=== PATIENT | male | born 1970 | race Caucasian/White ===

== ENCOUNTER → 2025-01-10 | Outpatient (CLI) | payer OTHER, BC, SELFPAY ==
--- NOTE | 2025-01-10 16:26 | RAD_ITS ---
PROCEDURE: CHEST PA AND LATERAL 01/10/2025 REASON FOR EXAM: ACUTE BRONCHITIS TECHNIQUE: Procedure Code: RADCXR Modality: DX Procedure: CHEST PA AND LATERAL COMPARISON: None. FINDINGS: Lungs/Pleura: No focal consolidation, pneumothorax, or pleural effusion. Heart/Mediastinum: Within normal limits. Bones/Soft tissues: Minimal degenerative changes of the spine. RAD/Chest PA and Lateral IMPRESSION: No airspace consolidation or pleural effusion. Reading Location: [id number]
--- OUTSIDE RECORDS SUMMARY | 2025-01-10 16:44 | XMS RPT_ITS | CCD ---
Author Organization [facility] Inform ion Partnership [facility] Care Team Providers Care Real Estate Administrative Assistant Name Role Phone (Historical), No Pcp Primary Care Provider Unava ilDr. Chaparro Shin Attending Unava ilable Pending, Provider Primary Care Unavailable (Historical), No Pcp Primary Care Provider Unava ilable Lavelle Calix PA-C Primary Care Provider Unavailable Primary Care Provider UnavailRuchi Collins PA-C Unavailable NATHANAEL CALIXDITH PAWEL Referring Unavaila Blaise Jules MD Unavailable NONE, NONE Unavailable Unavailable MIZANIN, LAVELLE L Referring Unavailable MIZANIN, LAVELLE L Primary Care Unavailable MIZANIN, LAVELLE L Referring Unavailable MIZANIN, LAVELLE L Primary Care Unavailable MIZANIN, LAVELLE L Primary Care Unavailable [place] Referring Unavailable MIZANIN, LAVELLE L Primary Care Unavailable MIZANIN, LAVELLE L Attending Unavailable MIZANIN, LAVELLE L Primary Care Unavailable Allergies Allergy Classification Reported Allergen(s) Allergy Type Date of Onset Reaction(s) Facility (1 source) ALLERGIES NOT ON FILE; Translations: [ALLERGIES NOT ON FILE] Propensity to adverse reactions (disorder) [facility] 2 Repository Medications Current Medications Medication Drug Class(es) Dates Sig (Normalized) Sig (Original) atorvastatin 20 mg oral tablet (3 sources) HMG-CoA Reductase Inhibitor Start: 01-11-2024 take 1 tablet by mouth once daily atorvastatin (LIPITOR) 20 mg tablet Indications: Hyperlipidemia, unspecified hyperlipidemia type Take 1 tablet by mouth once daily. 90 tablet 3 01/11/2024 Active CPAP/BIPAP/OTHER (7 sources) Start: 08-30-2022 End: 01-14-2050 CPAP/BIPAP/OTHER Indications: LOVE (obstructive sleep apnea) Type .CPAPSettings into a note to see current settings/supplies/DM E information. 1 Each 08/30/2022 01/14/2050 Active Start: 08-30-2022 End: 01-14-2050 CPAP/BIPAP/OTHER Indications : LOVE (obstructive sleep apnea) Type .CPAPSettings into a note to see current settings/supplies/DME information. 1 Each 0 08/30/2022 01/14/2050 Active Comment on above: Type .CPAPSettings i nto a note to see current settings/supplies/DME information. ibuprofen 200 mg oral tablet (1 source) Nonsteroidal Anti-inflammatory Drug ibuprofen 200 mg tab let 2 as needed for pain active Mattie Granados LPN [facility] Completed/Discontinued Medications Medication Drug Class(es) Dates Sig (Normalized) Sig (Original) [id number] 200 actuat albuterol 0.09 mg/actuat metered dose inhaler (2 sources) beta2-Adrenergic Agonist Start: 09-23-2014 End: 07-25-2022 take 2 puff(s) by inhalation every four hours as needed for wheezing albuterol HFA (VENTOLIN HFA) 90 mcg/actuation inhaler Indications: Other pneumonia, unspecified organism Inhale 2 Puffs as instructed every 4 hours as needed for Wheezing/Shortness of Breath. 1 Inhaler 0 09/23/2014 07/25/2022 Discontinued Comment on above: Inhale 2 Puffs as in structed every 4 hours as needed for Wheezing/Shortness of Breath. codeine phosphate 2 mg/ml / guaiFENesin 20 mg/ml oral solution (2 sources) Opioid Agonist Start: 09-23-2014 End: 07-25-2022 take 5-10 mL by mouth four times daily as needed for cough codeine-guaiFENesin (ROBITUSSIN AC) 10-100 mg/5 mL syrup Indications: Other pneumonia, unspecified organism Take 5-10 mL by mouth four times daily as needed for Cough. May cause drowsiness. 120 mL 0 09/23/2014 07/25/2022 Discontinued Comment on above: Take 5-10 mL by mout h four times daily as needed for Cough. May cause drowsiness. Problems Active Problems Problem Classification Problem Date Documented Date Episodic/Chronic Diabetes mellitus without complication (1 source) Increased glucose level; Translations: [Other abnormal glucose] Episodic Disorders of lipid metabolism (4 sources) Hyperlipidemia; Translations: [Hyperlipidemia, unspecified] Onset: 01-09-2024 01-11-2024 Chronic Immunizations and screening for infectious disease (2 sources) Viral screening status; Translations: [Encounter for screening for other viral diseases] Episodic Influenza (1 source) Influenza-like illness; Translations: [Influenza due to unidentified influenza virus with other respiratory manifestations] 02-05-2024 Episodic Malaise and fatigue (2 sources) Fatigue; Translations: [Other fatigue] Episodic Osteoarthritis (14 sources) Primary osteoarthritis, right shoulder; Translations: [Osteoarthritis of acromioclavicular joint] Onset: 02-06-2022 Chronic Other lower respiratory disease (1 source) Snoring; Translations: [Snoring] Episodic Other lower respiratory disease (2 sources) Cough; Translations: [Acute cough] 02-05-2024 Episodic Other non-traumatic joint disorders (1 source) Pain in right knee; Translations: [Pain in joint, lower leg] Episodic Residual codes; unclassified (7 sources) Obstructive sleep apnea syndrome; Translations: [Obstructive sleep apnea (adult) (pediatric)] Onset: 08-06-2022 08-29-2022 Chronic Unclassified (1 source) Acute cough; Translations: [Acute cough] Onset: 02-05-2024 Past or Other Problems Problem Classification Problem Date Documented Da te Episodic/Chronic Other connective tissue disease (4 sources) Impingement syndrome of right shoulder; Translations: [Impingement syndrome of right shoulder] Onset: 02-10-2022 Episodic Other connective tissue disease (10 sources) Impingement syndrome of right shoulder region; Translations: [Impingement syndrome of right shoulder] Onset: 02-10-2022 07-25-2022 Episodic Other connective tissue disease (1 source) Subacromial bursitis of left shoulder; Translations: [Bursitis of left shoulder] Onset: 11-02-2023 11-02-2023 Episodic Other connective tissue disease (1 source) Disorder of rotator cuff; Translations: [Unspecified disorder of synovium and tendon, left shoulder] Onset: 10-05-2023 10-05-2023 Episodic Other screening for suspected conditions (not mental disorders or infectious disease) (10 sources) Patient encounter status; Translations: [Encounter for screening for malignant neoplasm of rectum] Onset: 01-09-2024 Episodic Sprains and strains (1 source) Rupture of tendon of biceps, long head; Translations: [Strain of muscle, fascia and tendon of long head of biceps, left arm, initial encounter] Onset: 11-02-2023 11-02-2023 Episodic Unclassified (1 source) Patient encounter status 02-03-2024 Results Test Name Value Interpretation Reference Range Facility [facility] 11-28-2024 [facility] [place] [place] MARYURI CHOI ([id number]) 1970 M Date Time Provider Department 11/28/24 2:40 PM LAVELLE CALIX [facility] During your visit today, we recorded the following information about you: Temperature Pulse Blood pressure Weight 97.4 degrees 60/minute 125/80 95.8 kg Height 1.829 m Lavelle Calix PA-C 11/28/2024 3:29 PM Signed Subjective Maryuri Daigle Choi is a 54 year old male. HPI Patient here for an annual well exam. LOVE: He has known LOVE based on HST - refuses CPAP as he had difficulty getting adjusted to it. Not interested in Inspire HLD: He has known HLD. Compliant with atorvastatin daily. Known family history of CAD - mother needed a stent for CAD in 60s, MGM had heart issue but unsure what. His tells him he has some hearing loss. He admits that with his former career ([employer]) it was common to have L sided hearing loss based on the location of a speaker for the work radio (L side of car). He feels he's doing okay with his hearing. His mood is doing well without any features of anxiety or depression. His appetite is good without any unintentional weight loss. He denies any fever or chills. He denies any CP, SOB, PND, Orthopnea or syncope. No abdominal pain, N/V/C/D. No active urinary concerns. Review of Systems All other systems reviewed and are negative. Objective BP 125/80 Pulse 60 Temp 36.3 ?C (97.4 ?F) (Temporal) Ht 182.9 cm (6') Wt 95.8 kg (211 lb 3.2 oz) SpO2 99% BMI 28.64 kg/m? Physical Exam Constitutional: General: He is not in acute distress. HENT: Head: Normocephalic and atraumatic. Right Ear: External ear normal. Left Ear: External ear normal. Eyes: Extraocular Movements: Extraocular movements intact. Conjunctiva/sclera: Conjunctivae normal. Cardiovascular: Rate and Rhythm: Normal rate and regular rhythm. Heart sounds: No murmur heard. Pulmonary: Effort: Pulmonary effort is normal. Breath sounds: Normal breath sounds. Abdominal: General: Bowel sounds are normal. Palpations: Abdomen is soft. Tenderness: There is no abdominal tenderness. Musculoskeletal: Cervical back: Neck supple. No rigidity. Lymphadenopathy: Head: Right side of head: No submental, submandibular, tonsillar, preauricular, posterior auricular or occipital adenopathy. Left side of head: No submental, submandibular, tonsillar, preauricular, posterior auricular or occipital adenopathy. Cervical: No cervical adenopathy. Skin: General: Skin is warm and dry. Findings: No rash. Neurological: Mental Status: He is alert. Mental status is at baseline. Psychiatric: Mood and Affect: Mood normal. Speech: Speech normal. Behavior: Behavior normal. Thought Content: Thought content normal. Judgment: Judgment normal. Assessment AND Plan Routine general medical examination at a health care facility Labs - reviewed CBC CMP Lipids - MUCH improved with atorvastatin! TSH PSA UA Preventative Cologuard 08/02/2022 neg Discussed will be due 08/02/2025 for colon cancer sceening - Cologuard vs colonoscopy vs iFOBT Vaccinations Declines Shingrix, Flu, COVID, Pneumococcal LOVE - unable to tolerate CPAP - hesitant to consider Inspire - Avoid driving when sleepy Lavelle Calix PA-C Allergies As of Date: 11/28/2024 (No Known Allergies) Date Reviewed: 11/28/2024 Reviewed by: Gabbie Walker MA - Fully Assessed Reason for Visit: Yearly Exam [187] Results [95] Cmt: Labs Primary Visit Diagnosis:Routine general medical examination at a health care facility [Z00.00] Order(s):FOLLOW UP IN PRIMARY CARE (FAMILY AND INTERNAL MEDICINE) [[id number]] Order #: [id number]: 1 FUTURE Prescriptions as of 11/28/2024 - atorvastatin (LIPITOR) 20 mg tablet Take 1 tablet by mouth once daily. Problem List As Of Date 11/28/2024 Noted Resolved Degenerative joint disease of acromioclavicular*02/2022 Impingement syndrome of right shoulder [M75.41] 02/10/2022 LOVE (obstructive sleep apnea) [G47.33] 08/2022 Hyperlipidemia [E78.5] 01/11/2024 Medications Discontinued During This Encounter Prescriptions - CPAP/BIPAP/OTHER (Discontinued) Reported on 11/28/2023 Level of Service: WELLNESS EXAMS EST 40-64 YRS [05684] Encounter Status:Closed by LAVELLE CALIX on 11/28/24 Normal [facility] CBC W Auto Differential pane l (Bld)on 11-11-2024 Basophils (Bld) [#/Vol] 0.05 10*3/uL Normal <0.11 [facility] Comment on above: Order Comment: Specjason davis Type: BLOOD SPECIMEN Ordering Facility: [facility] Address: [address] [place] [address] Performed By: #### 5 7021-8 #### [facility] CLIA [id number] [address] [place] [address] [place] Basophils/100 WBC (Bld) 0.9 % Normal [facility] Comment on above: Order Comment: Elgini susan Type: BLOOD SPECIMEN Ordering Facility: [facility] Address: [address] [place] [address] Performed By: #### 5 7021-8 #### [facility] CLIA [id number] [address] [place] [address] [place] Differential cell count method Nom (Bld) Auto Normal [facility] Comment on above: Order Comment: Speci men Type: BLOOD SPECIMEN Ordering Facility: [facility] Address: [address] [place] [address] Performed By: #### 5 7021-8 #### [facility] CLIA [id number] [address] [place] [address] [place] Eosinophils (Bld) [#/Vol] 0.20 10*3/uL Normal <0.46 [facility] Comment on above: Order Comment: Speci men Type: BLOOD SPECIMEN Ordering Facility: [facility] Address: [address] [place] [address] Performed By: #### 5 7021-8 #### [facility] CLIA [id number] [address] [place] [address] [facility] [place] Eosinophils/100 WBC (Bld) 3.7 % Normal [facility] Comment on above: Order Comment: Speci men Type: BLOOD SPECIMEN Ordering Facility: [facility] Address: [address] [place] [address] Performed By: #### 5 7021-8 #### [facility] CLIA [id number] [address] [place] [address] [place] Erythrocyte distribution width (RBC) [Ratio] 12.0 % Normal 11.5-15.0 [facility] Comment on above: Order Comment: Speci men Type: BLOOD SPECIMEN Ordering Facility: [facility] Address: [address] [place] [address] Performed By: #### 5 7021-8 #### [facility] CLIA [id number] [address] [place] [address] [place] Hematocrit (Bld) [Volume fraction] 42.4 % Normal 39.0-51.0 [facility] Comment on above: Order Comment: Speci men Type: BLOOD SPECIMEN Ordering Facility: [facility] Address: [address] [place] [address] Performed By: #### 5 7021-8 #### [facility] CLIA [id number] [address] [place] [address] [place] Hemoglobin (Bld) [Mass/Vol] 14.7 g/dL Normal 13.0-17.0 [facility] Comment on above: Order Comment: Speci men Type: BLOOD SPECIMEN Ordering Facility: [facility] Address: [address] [place] [address] Performed By: #### 5 7021-8 #### [facility] CLIA [id number] [address] [place] [address] [place] Immature granulocytes (Bld) [#/Vol] 10*3/uL Normal <0.10 [facility] Comment on above: Order Comment: Speci men Type: BLOOD SPECIMEN Ordering Facility: [facility] Address: [address] [place] [address] Performed By: #### 5 7021-8 #### [facility] CLIA [id number] [address] [place] [address] [place] Immature granulocytes/100 WBC (Bld) 0.2 % Normal [facility] Comment on above: Order Comment: Speci men Type: BLOOD SPECIMEN Ordering Facility: [facility] Address: [address] [place] [address] Performed By: #### 5 7021-8 #### [facility] CLIA [id number] [address] [place] [address] [place] Lymphocytes (Bld) [#/Vol] 2.03 10*3/uL Normal 1.00-4.00 [facility] Comment on above: Order Comment: Speci men Type: BLOOD SPECIMEN Ordering Facility: [facility] Address: [address] [place] [address] Performed By: #### 5 7021-8 #### [facility] CLIA [id number] [address] [place] [address] [place] Lymphocytes/100 WBC (Bld) 38.0 % Normal [facility] Comment on above: Order Comment: Speci men Type: BLOOD SPECIMEN Ordering Facility: [facility] Address: [address] [place] [address] Performed By: #### 5 7021-8 #### [facility] CLIA [id number] [address] [place], [place] [address] [place] [address] STATES [facility] MCH (RBC) [Entitic mass] 31.0 pg Normal 26.0-34.0 [facility] Comment on above: Order Comment: Speci men Type: BLOOD SPECIMEN Ordering Facility: [facility] Address: [address] [place] [address] Performed By: #### 5 7021-8 #### [facility] CLIA [id number] [address] [place] [address] [place] MCHC (RBC) [Mass/Vol] 34.7 g/dL Normal 30.5-36.0 [facility] Comment on above: Order Comment: Speci men Type: BLOOD SPECIMEN Ordering Facility: [facility] Address: [address] [place] [address] Performed By: #### 5 7021-8 #### [facility] CLIA [id number] [address] [place] [address] [place] MCV (RBC) [Entitic vol] 89.5 fL Normal 80.0-100.0 [facility] Comment on above: Order Comment: Speci men Type: BLOOD SPECIMEN Ordering Facility: [facility] Address: [address] [place] [address] Performed By: #### 5 7021-8 #### [facility] CLIA [id number] [address] [place] Monocytes (Bld) [#/Vol] 0.51 10*3/uL Normal <0.87 [facility] Comment on above: Order Comment: Speci men Type: BLOOD SPECIMEN Ordering Facility: [facility] Address: [address] [place] [address] Performed By: #### 5 7021-8 #### [facility] CLIA [id number] [address] Monocytes/100 WBC (Bld) 9.6 % Normal [facility] Comment on above: Order Comment: Speci men Type: BLOOD SPECIMEN Ordering Facility: [facility] Address: [address] [id number] Performed By: #### 5 7021-8 #### [facility] CLIA [id number] [address] [place] [address] [place] Neutrophils (Bld) [#/Vol] 2.54 10*3/uL Normal 1.45-7.50 [facility] Comment on above: Order Comment: Speci men Type: BLOOD SPECIMEN Ordering Facility: [facility] Address: [address] [place] [address] Performed By: #### 5 7021-8 #### [facility] CLIA [id number] [address] [place] [address] [place] Neutrophils/100 WBC (Bld) 47.6 % Normal [facility] Comment on above: Order Comment: Speci men Type: BLOOD SPECIMEN Ordering Facility: [facility] Address: [address] [place], [place] [id number] Performed By: #### 5 7021-8 #### [facility] CLIA [id number] [address] [place] [address] [place] Nucleated RBC (Bld) [#/Vol] Normal [facility] Comment on above: Order Comment: Speci men Type: BLOOD SPECIMEN Ordering Facility: [facility] Address: [address] [place] [address] Performed By: #### 5 7021-8 #### [facility] CLIA [id number] [address] [place] [address] [place] Nucleated RBC/100 WBC (Bld) [Ratio] Normal [facility] Comment on above: Order Comment: Speci men Type: BLOOD SPECIMEN Ordering Facility: [facility] Address: [address] [id number] Performed By: #### 5 7021-8 #### [facility] CLIA [id number] [address] [place] [address] [place] Platelet mean volume (Bld) [Entitic vol] 10.7 fL Normal 9.0-12.7 [facility] Comment on above: Order Comment: Speci men Type: BLOOD SPECIMEN Ordering Facility: [facility] Address: [address] [place] [address] Performed By: #### 5 7021-8 #### [facility] CLIA [id number] [address] [place] [address] [place] Platelets (Bld) [#/Vol] 238 10*3/uL Normal 150-400 [facility] Comment on above: Order Comment: Speci men Type: BLOOD SPECIMEN Ordering Facility: [facility] Address: [address] [place] [address] Performed By: #### 5 7021-8 #### [facility] CLIA [id number] [address] [place] [address] [place] RBC (Bld) [#/Vol] 4.74 10*6/uL Normal 4.20-6.00 [facility] Comment on above: Order Comment: Speci men Type: BLOOD SPECIMEN Ordering Facility: [facility] Address: [address] [place] [address] Performed By: #### 5 7021-8 #### [facility] CLIA [id number] [address] [place] [address] [place] WBC (Bld) [#/Vol] 5.34 10*3/uL Normal 3.70-11.00 [facility] Comment on above: Order Comment: Speci men Type: BLOOD SPECIMEN Ordering Facility: [facility] Address: [address] [place] [address] Performed By: #### 5 7021-8 #### [facility] CLIA [id number] [address] [place] [address] [facility] [place] Comprehensive metabolic 2000 panelon 11-11-2024 Albumin [Mass/Vol] 4.6 g/dL Normal 3.9-4.9 [facility] Comment on above: Order Comment: Speci men Type: BLOOD SPECIMEN Ordering Facility: [facility] Address: [address] [id number] Performed By: #### 2 4323-8, 18769-5, TSHRF #### [facility] CLIA [id number] [address] [place] [address] [place] ALP [Catalytic activity/Vol] 58 U/L Normal 38-113 [facility] Comment on above: Order Comment: Speci men Type: BLOOD SPECIMEN Ordering Facility: [facility] Address: [address] [place] [address] Performed By: #### 2 4323-8, 67551-0, TSHRF #### [facility] CLIA [id number] [address] [place] [address] [place] ALT With P-5'-P [Catalytic activity/Vol] 34 U/L Normal 10-54 [facility] Comment on above: Order Comment: Speci men Type: BLOOD SPECIMEN Ordering Facility: [facility] Address: [address] [place] [address] Performed By: #### 2 4323-8, 55538-1, TSHRF #### [facility] CLIA [id number] [address] [place] [address] [place] Anion gap [Moles/Vol] 14 mmol/L Normal 8-15 [facility] Comment on above: Order Comment: Speci men Type: BLOOD SPECIMEN Ordering Facility: [facility] Address: [address] [place] [address] Performed By: #### 2 4323-8, 62746-2, TSHRF #### [facility] CLIA [id number] [address] [place] [address] [place] AST With P-5'-P [Catalytic activity/Vol] 25 U/L Normal 14-40 [facility] Comment on above: Order Comment: Speci men Type: BLOOD SPECIMEN Ordering Facility: [facility] Address: [address] [place] [address] Performed By: #### 2 4323-8, 91494-2, TSHRF #### [facility] CLIA [id number] [address] [place] [address] [place] Bilirubin [Mass/Vol] 0.7 mg/dL Normal 0.2-1.3 [facility] Comment on above: Order Comment: Speci men Type: BLOOD SPECIMEN Ordering Facility: [facility] Address: [address] [place] [address] Performed By: #### 2 4323-8, 77292-8, TSHRF #### [facility] CLIA [id number] [address] [place] [address] [place] Calcium [Mass/Vol] 9.1 mg/dL Normal 8.5-10.2 [facility] Comment on above: Order Comment: Speci men Type: BLOOD SPECIMEN Ordering Facility: [facility] Address: [address] [place] [address] Performed By: #### 2 4323-8, 49519-5, TSHRF #### [facility] CLIA [id number] [address] [place] [address] [place] Chloride [Moles/Vol] 102 mmol/L Normal 98-107 [facility] Comment on above: Order Comment: Speci men Type: BLOOD SPECIMEN Ordering Facility: [facility] Address: [address] [place] [address] Performed By: #### 2 4323-8, 43835-1, TSHRF #### [facility] CLIA [id number] [address] [place] [address] [place] CO2 [Moles/Vol] 23 mmol/L Normal 22-30 [facility] Comment on above: Order Comment: Speci men Type: BLOOD SPECIMEN Ordering Facility: [facility] Address: [address] [place] [address] Performed By: #### 2 4323-8, 33155-5, TSHRF #### [facility] CLIA [id number] [address] [place] [address] [place] Creatinine [Mass/Vol] 0.86 mg/dL Normal 0.73-1.22 [facility] Comment on above: Order Comment: Pineda davis Type: BLOOD SPECIMEN Ordering Facility: [facility] Address: [address] [place] [address] Performed By: #### 2 4323-8, 07351-1, TSHRF #### [facility] CLIA [id number] [address] [place] [address] [place] eGFRcr SerPlBld CKD-EPI 2020 103 mL/min/1.73m??? Normal >=60 [facility] Comment on above: Order Comment: Pineda davis Type: BLOOD SPECIMEN Ordering Facility: [facility] Address: [address] [place] [address] Result Comment: Angela mated Glomerular Filtration Rate (eGFR) is calculated using the 2020 CKD-EPI creatinine equation. This equation utilizes serum creatinine, sex, and age as parameters. The creatinine assay has traceable calibration to isotope dilution-mass spectrometry. Refer to KDIGO guidelines for clinical interpretation. In patients with unstable renal function, e.g. those with acute kidney injury, the eGFR may not accurately reflect actual GFR. Performed By: #### 2 4323-8, 45833-3, [facility] #### [facility] CLIA [id number] [address] [place] [address] [place] Glucose [Mass/Vol] 86 mg/dL Normal 74-99 [facility] Comment on above: Order Comment: Pineda davis Type: BLOOD SPECIMEN Ordering Facility: [facility] Address: [address] [place] [address] Result Comment: The [place] Diabetes Association (ADA) provides guidance for cutoff values for fasting glucose and random glucose. The ADA defines fasting as no caloric intake for at least 8 hours. Fasting plasma glucose results between 100 to 125 mg/dL indicate increased risk for diabetes (prediabetes). Fasting plasma glucose results greater than or equal to 126 mg/dL meet the criteria for diagnosis of diabetes. In the absence of unequivocal hyperglycemia, results should be confirmed by repeat testing. In a patient with classic symptoms of hyperglycemia or hyperglycemic crisis, random plasma glucose results greater than or equal to 200 mg/dL meet the criteria for diagnosis of diabetes. Reference: Standards of Medical Care in Diabetes 2016, [place] Diabetes Association. Diabetes Care. 2016.39(Suppl 1). Performed By: #### 2 4323-8, 54488-8, [facility] #### [facility] CLIA [id number] [address] [place] [address] [place] Potassium [Moles/Vol] 4.2 mmol/L Normal 3.7-5.1 [facility] Comment on above: Order Comment: Speci men Type: BLOOD SPECIMEN Ordering Facility: [facility] Address: [address] [place] [address] Performed By: #### 2 4323-8, 83084-7, [facility] #### [facility] CLIA [id number] [address] [place] [address] [place] Protein [Mass/Vol] 7.3 g/dL Normal 6.3-8.0 [facility] Comment on above: Order Comment: Speci men Type: BLOOD SPECIMEN Ordering Facility: [facility] Address: [address] [place] [address] Performed By: #### 2 4323-8, 58705-1, [facility] #### [facility] CLIA [id number] [address] [place] [address] [place] Sodium [Moles/Vol] 139 mmol/L Normal 136-144 [facility] Comment on above: Order Comment: Speci men Type: BLOOD SPECIMEN Ordering Facility: [facility] Address: [address] [place] [address] Performed By: #### 2 4323-8, 40502-8, T[facility] #### [facility] CLIA [id number] [address] [place] [address] [place] Urea nitrogen [Mass/Vol] 12 mg/dL Normal 9-24 [facility] Comment on above: Order Comment: Speci men Type: BLOOD SPECIMEN Ordering Facility: [facility] Address: [address] [place] [address] Performed By: #### 2 4323-8, 47355-4, [facility] #### [facility] CLIA [id number] [address] [place] [address] [facility] Lipid 1996 panelon 5 Cholesterol [Mass/Vol] 193 mg/dL Normal <200 [facility] Comment on above: Order Comment: Pineda susan Type: BLOOD SPECIMEN Ordering Facility: [facility] Address: [address] [place] [address] Result Comment: <200 mg/dL, Desirable 200-239 mg/dL, Borderline high >239 mg/dL, High Performed By: #### 2 4323-8, 85574-2, [facility] #### [facility] CLIA [id number] [address] [place] [id number] [facility] Cholesterol in HDL [Mass/Vol] 48 mg/dL Normal >39 [facility] Comment on above: Order Comment: Pineda davis Type: BLOOD SPECIMEN Ordering Facility: [facility] Address: [address] [place] [address] Result Comment: 40-5 9 mg/dL, Acceptable >59 mg/dL, High: Negative risk factor for coronary heart disease <40 mg/dL, Low: Positive risk factor for coronary heart disease Performed By: #### 2 4323-8, 40029-3, [facility] #### [facility] CLIA [id number] [address] Cholesterol in LDL [Mass/Vol] 127 mg/dL High <100 [facility] Comment on above: Order Comment: Elginjason davis Type: BLOOD SPECIMEN Ordering Facility: [facility] Address: [address] [place] [address] Result Comment: <100 mg/dL, Optimal 100-129 mg/dL, Near optimal/above optimal 130-159 mg/dL, Borderline high 160-189 mg/dL, High >189 mg/dL, Very high Secondary prevention optimal LDL Cholesterol levels are recommended to be <70 mg/dL LDL cholesterol is calculated using the Henley-NIH equation. Performed By: #### 2 4323-8, 08701-7, [facility] #### [facility] CLIA [id number] [address] [place] [address] [facility] Cholesterol in LDL/Cholesterol in HDL [Mass ratio] 2.65 {ratio} High <2.54 [facility] Comment on above: Order Comment: Pineda susan Type: BLOOD SPECIMEN Ordering Facility: [facility] Address: [address] [place] [address] Result Comment: Refe ritchiece: 1. National Cholesterol Education Program ATP III Guideline At-A-Glance Quick Desk Reference: National Heart, Lung, and Blood [place]. National Institutes of Health. 2001: NIH Publication No. 01-3305. 2. An International Atherosclerosis Society position paper: global recommendations for the management of dyslipidemia: executive summary, Atherosclerosis. 2014: 232(2):410-413. Performed By: #### 2 4323-8, 39655-0, T[facility] #### [facility] CLIA [id number] [address] [place] [address] [facility] Cholesterol in VLDL [Mass/Vol] 17 mg/dL Normal <30 [facility] Comment on above: Order Comment: Pineda davis Type: BLOOD SPECIMEN Ordering Facility: [facility] Address: [address] [place] [address] Performed By: #### 2 4323-8, 80026-0, T[facility] #### [facility] CLIA [id number] [address] [place] [address] [facility] Cholesterol non HDL [Mass/Vol] 145 mg/dL High <130 [facility] Comment on above: Order Comment: Elginjason davis Type: BLOOD SPECIMEN Ordering Facility: [facility] Address: [address] [place] [address] Result Comment: <130 mg/dL, Optimal 130-159 mg/dL, Near optimal/above optimal 160-189 mg/dL, Borderline high 190-219 mg/dL, High >219 mg/dL, Very high Secondary prevention optimal non HDL Cholesterol levels are recommended to be <100 mg/dL Performed By: #### 2 4323-8, 37156-4, [facility] #### [facility] CLIA [id number] [address] [place] [address] [facility] [place] Cholesterol.total/ Cholesterol in HDL [Mass ratio] 4.02 {ratio} Normal <5.10 [facility] Comment on above: Order Comment: Speci men Type: BLOOD SPECIMEN Ordering Facility: [facility] Address: [address] [place] [address] Performed By: #### 2 4323-8, 37850-1, T[facility] #### [facility] CLIA [id number] [address] [place] [address] [place] [facility] FASTING TIME 12 hrs Normal [facility] Comment on above: Order Comment: Speci men Type: BLOOD SPECIMEN Ordering Facility: [facility] Address: [address] [place] [address] Performed By: #### 2 4323-8, 85047-4, TSHRF #### [facility] CLIA [id number] [address] [place] [address] [place] [facility] Triglyceride [Mass/Vol] 100 mg/dL Normal <150 [facility] Comment on above: Order Comment: Speci men Type: BLOOD SPECIMEN Ordering Facility: [facility] Address: [address] [place] [address] Result Comment: <150 mg/dL, Normal 150-199 mg/dL, Borderline high 200-499 mg/dL, High >499 mg/dL, Very high Performed By: #### 2 4323-8, 05977-2, T[facility] #### [facility] CLIA [id number] [address] [place] [address] [facility] [place] PSA/PROSTATE SPECIFIC ANTIGE N SCREENINGon 11-11-2024 Prostate specific Ag [Mass/Vol] 0.23 ng/mL Normal <2.60 [facility] Comment on above: Order Comment: Speci men Type: BLOOD SPECIMEN Ordering Facility: [facility] Address: [address] [place] [address] Result Comment: Tota l PSA test methodology used is the Electrochemiluminescence Immunoassay by [employer]. Total PSA values by differing methodologies cannot be interchanged. Performed By: #### P SAS1 #### [facility] CLIA [id number] [address] [place] TSH W/REFLEX FT4on 5 TSH Qn 2.490 m[IU]/L Normal 0.270-4.200 [facility] Comment on above: Order Comment: Speci men Type: BLOOD SPECIMEN Ordering Facility: [facility] Address: [address] [place] [address] Performed By: #### 2 4323-8, 41538-3, T[facility] #### [facility] CLIA [id number] [address] [place] [address] [facility] [place] URINALYSIS, REFLEX MICROSCOP ICon 11-11-2024 Bilirubin Ql (U) Negative Normal Negative [facility] Comment on above: Order Comment: Speci men Type: URINE SPECIMEN Ordering Facility: [facility] Address: [address] [place] [address] Performed By: #### L [id number] #### [facility] CLIA [id number] [address] [place] [address] [facility] [place] Clarity (Unsp spec) Clear Normal Clear [facility] Comment on above: Order Comment: Speci men Type: URINE SPECIMEN Ordering Facility: [facility] Address: [address] [place] [address] Performed By: #### L [id number] #### [facility] CLIA [id number] [address] [place] [address] [facility] Color (U) Yellow Normal Yellow [facility] Comment on above: Order Comment: Speci men Type: URINE SPECIMEN Ordering Facility: [facility] Address: [address] [place] [address] Performed By: #### L [id number] #### [facility] CLIA [id number] [address] [place] [address] [facility] Glucose Test strip (U) [Mass/Vol] Negative Normal Negative [facility] Comment on above: Order Comment: Speci men Type: URINE SPECIMEN Ordering Facility: [facility] Address: [address] [place] [address] Performed By: #### L [id number] #### [facility] CLIA [id number] [address] [place] [address] [place] Hemoglobin Ql (U) Negative Normal Negative [facility] Comment on above: Order Comment: Speci men Type: URINE SPECIMEN Ordering Facility: [facility] Address: [address] [place] [address] Performed By: #### L [id number] #### [facility] CLIA [id number] [address] [place] [address] [place] Ketones Ql (U) Negative Normal Negative [facility] Comment on above: Order Comment: Speci men Type: URINE SPECIMEN Ordering Facility: [facility] Address: [address] [place] [address] Performed By: #### L [id number] #### [facility] CLIA [id number] [address] [place] [address] [place] Leukocyte esterase Test strip Ql (U) Negative Normal Negative [facility] Comment on above: Order Comment: Speci men Type: URINE SPECIMEN Ordering Facility: [facility] Address: [address] [place] [address] Performed By: #### L [id number] #### [facility] CLIA [id number] [address] [place] [address] [place] Nitrite Ql (U) Negative Normal Negative [facility] Comment on above: Order Comment: Speci men Type: URINE SPECIMEN Ordering Facility: [facility] Address: [address] [place] [address] Performed By: #### L [id number] #### [facility] CLIA [id number] [address] [place] [address] [place] pH (U) 7.0 [pH] Normal 5.0-8.0 [facility] Comment on above: Order Comment: Speci men Type: URINE SPECIMEN Ordering Facility: [facility] Address: [address] [place], [place] [address] Performed By: #### L [id number] #### [facility] CLIA [id number] [address] Protein (U) [Mass/Vol] Negative Normal Negative [facility] Comment on above: Order Comment: Speci men Type: URINE SPECIMEN Ordering Facility: [facility] Address: [address] [place] [address] Performed By: #### L [id number] #### [facility] CLIA [id number] [address] [place] [id number] [facility] [place] Specific gravity (U) [Rel density] 1.015 Normal 1.005-1.030 [facility] Comment on above: Order Comment: Speci men Type: URINE SPECIMEN Ordering Facility: [facility] Address: [address] [place] [address] Performed By: #### L [id number] #### [facility] CLIA [id number] [address] [place] [id number] [facility] Urobilinogen Ql (U) 0.2 EU/dL Normal 0.2-1.0 EU/dL [facility] Comment on above: Order Comment: Speci men Type: URINE SPECIMEN Ordering Facility: [facility] Address: [address] [place] [address] Performed By: #### L [id number] #### [facility] CLIA [id number] [address] [place] [id number] [facility] Relevant diagnostic tests/la boratory data Narrativeon 08-29-2024 Fall risk assessment no [employer] Work Phone: MEDS REVIEW Documentation of cur rent medications (procedure) [employer] Work Phone: MEDS REVIEWD Medications reviewed without changes [employer] Work Phone: Dorene 02-06-2024 ZONIA Telephone ([facility]) MARYURI CHOI ([id number]) 1970 M Date Time Provider Department 02/06/24 LAVELLE CALIX During your visit today, we recorded the following information about you: Allergies As of Date: 02/06/2024 (No Known Allergies) Date Reviewed: 02/05/2024 Reviewed by: Chapis Ren LPN - Fully Assessed Reason for Visit: Results [95] Prescriptions as of 02/09/2024 - atorvastatin (LIPITOR) 20 mg tablet Take 1 tablet by mouth once daily. - CPAP/BIPAP/OTHER Type .CPAPSettings into a note to see current settings/supplies/DME information. Problem List As Of Date 02/06/2024 Noted Resolved Degenerative joint disease of acromioclavicular*02/2022 Impingement syndrome of right shoulder [M75.41] 02/10/2022 LOVE (obstructive sleep apnea) [G47.33] 08/2022 Hyperlipidemia [E78.5] 01/11/2024 Encounter Status:Closed by LAVELLE CALIX on 02/09/24 [facility] CNOVon 02-05-2024 CNOV Office Visit (UCWSTR ) MARYURI CHOI ([id number]) 1970 M Date Time Provider Department 02/05/24 9:00 AM [facility] During your visit today, we recorded the following information about you: Temperature Pulse Respiration Blood pressure 101.3 degrees 97/minute 16/minute 142/82 Weight 93.8 kg Mo Summers MD 02/05/2024 4:35 PM Signed Patient presents with: Cough: Cough, chest congestion, fever and bodyaches x 6 days HPI: Feeling sick for 7 days. He and his were sick with URI symptoms. He felt back to normal yesterday but woke very ill this morning. This reminds him of when he had pneumonia (2015). No COVID testing during this illness. Positive symptoms: Cough, Fever, Body Aches, Shortness of breath, Sore throat, Nasal Congestion, Rhinorrhea, Chills, Body Aches, Malaise, Fatigue, Headache, Nausea, thrsty Negative symptoms: Chest pain, Earache, Vomiting, Diarrhea, OTC: Tylenol MEDICATIONS: Current Outpatient Medications Medication Sig atorvastatin (LIPITOR) 20 mg tablet Take 1 tablet by mouth once daily. CPAP/BIPAP/OTHER Type .CPAPSettings into a note to see current settings/supplies/DME information. (Patient not taking: Reported on 11/28/2023) No current facility-administered medications for this visit. ALLERGIES: ALLERGIES No Known Allergies VITALS: BP 142/82 Pulse 97 Temp (!) 38.5 ?C (101.3 ?F) (Tympanic) Resp 16 Wt 93.8 kg (206 lb 12.7 oz) SpO2 96% BMI 28.05 kg/m? PHYSICAL EXAM: GEN: ill appearing, alert HEENT: PERRL, EOMI, conjunctiva clear Ears: canals clear. TMs without erythema, bulge, or effusion Sinuses: non-tender frontal sinus, non-tender maxillary sinuses Throat: moist mucous membranes, mild erythema, no exudate Neck: supple, no thyromegaly, no lymphadenopathy HEART: regular rate, regular rhythm, no murmurs LUNGS: clear to auscultation, no wheezes or crackles, no increased WOB ASSESSMENT/PLAN: 1. Influenza-like illness - ICD9: 487.1, ICD10: J11.1 (primary diagnosis) 2. Acute cough - ICD9: 786.2, ICD10: R05.1 - suspect new viral URI today, differential includes COVID-19 and influenza. - Discussed supportive care treatment with home isolation (fever free for 24 hours and improving symptoms), rest, cold medicine, and analgesia. - Red flags to seek further treatment include chest pain, shortness of breath, and lethargy; in the ER if severe. - INFLUENZA AANDB MOLECULAR (POC) - negative - COVID AND INFLUENZA A/B AND RSV PCR, ROUTINE - declines antiviral if COVID positive - XR CHEST 2V FRONTAL/LAT to look for occult pneumonia. To be completed at [facility] and will call with results since xray is not available here this morning because of maintenance. Mo Summers MD Allergies As of Date: 02/05/2024 (No Known Allergies) Date Reviewed: 02/05/2024 Reviewed by: Chapis Ren LPN - Fully Assessed Reason for Visit: Cough [28] Cmt: Cough, chest congestion, fever and bodyaches x 6 days Primary Visit Diagnosis:Influenza-like illness [J11.1] Other Visit Diagnosis:Acute cough [R05.1] Order(s):INFLUENZA AANDB MOLECULAR (POC) [[id number]] Order #: [id number]. #:[id number] -LAB XR CHEST 2V FRONTAL/LAT [[id number]] Order #: [id number] FUTURE COVID AND INFLUENZA A/B AND RSV PCR, ROUTINE [SQCVFLRS] Order #: [id number]. #:[id number] Prescriptions as of 02/05/2024 - atorvastatin (LIPITOR) 20 mg tablet Take 1 tablet by mouth once daily. - CPAP/BIPAP/OTHER Type .CPAPSettings into a note to see current settings/supplies/DME information. Problem List As Of Date 02/05/2024 Noted Resolved Degenerative joint disease of acromioclavicular*02/2022 Impingement syndrome of right shoulder [M75.41] 02/10/2022 LOVE (obstructive sleep apnea) [G47.33] 08/2022 Hyperlipidemia [E78.5] 01/11/2024 Level of Service: OFFICE/OUTPATIENT ESTABLISHED MOD [facility] 30 MIN [43241] Letter Text Encounter Status:Closed by MO SUMMERS on 02/05/24 Normal [facility] COVID AND INFLUENZA A/B AND RSV PCR, ROUTINEon 02-05-2024 SARS-CoV-2 (COVID-19) RNA LAURE+probe Ql (Unsp spec) SARS-COV-2 (AGENT OF COVID-19) RNA: Not detected INFLUENZA A RNA: Not detected INFLUENZA B RNA: Not detected RESPIRATORY SYNCYTIAL VIRUS (RSV) RNA: Not detected Normal [facility] Comment on above: Performed By: #### C VFLRS #### [facility] CLIA [id number] [address] [place] [address] [place] COVID & INFLUENZA A/B & RSV PCR, ROUTINEon 02-05-2024 FLUAV RNA LAURE+probe Ql (Unsp spec) Not detected Not Detected [facility] FLUBV RNA LAURE+probe Ql (Unsp spec) Not detected Not Detected [facility] Interpretation and review of laboratory results Normal [facility] RSV A RNA LAURE+probe Ql (Unsp spec) Not detected Not Detected [facility] SARS-CoV-2 (COVID-19) RNA LAURE+probe Ql (Unsp spec) Not detected See comment [facility] Reference Range (the expected result in uninfected individuals): Not detected [facility] INFLUENZA A&B MOLECULAR (POC )on 02-05-2024 Flu A (POCT) Negative Negative [facility] Flu B (POCT) Negative Negative [facility] Procedural Control Valid [facility] Location:[address], [address] [place] [address] POINT OF CARE [facility] CT CARDIAC SCORING WO IV CON TRASTon 02-03-2024 CT CARDIAC SCORING WO IV CONTRAST Interpreted By: Yonatan Crockett, STUDY: CT CARDIAC SCORING WO IV CONTRAST; 02/03/2024 8:29 am INDICATION: Signs/Symptoms:Calcium Score. ,Z13.6 Encounter for screening for cardiovascular disorders COMPARISON: None. ACCESSION NUMBER(S): [id number] ORDERING CLINICIAN: LAVELLE CALIX TECHNIQUE: Using prospective ECG gating, CT scan of the coronary arteries was performed without intravenous contrast. Coronary calcium scoring was performed according to the method of Agatston. FINDINGS: The score and distribution of calcium in the coronary arteries is as follows: LM 0 LAD 0 LCx 0 RCA 0 Total 0 The visualized mid/lower ascending thoracic aorta measures 3.2 cm in diameter. The heart is normal in size. No pericardial effusion is present. No gross evidence of mediastinal or hilar lymphadenopathy or masses is identified. The visualized segments of the lungs are normally expanded. The visualized subdiaphragmatic structures appear intact. IMPRESSION: 1. Coronary artery calcium score of 0*. *Coronary artery calcium scoring may be helpful in predicting the risk for future coronary heart disease events. According to the [place] [employer] Foundation Clinical Expert Consensus Task Force, such testing provides important prognostic information in patients with more than one coronary heart disease risk factor. The coronary artery calcium score correlates with the annual risk of a non-fatal myocardial infarction or coronary heart disease . Coronary artery score Annual Risk 0-99 0.4% 100-399 1.3% >400 2.4% These three breakpoints correspond to lower, intermediate and high risk states for future coronary events. Such information should be used, along with appropriate clinical judgment, to make decisions regarding the intensity of risk factor management strategies to treat blood lipids and to modify other non-lipid coronary risk factors. Reference: [place] P et al. Circulation. 2007; 115:402-426 MACRO: None Signed by: Yonatan Crockett 02/06/2024 12:09 PM Dictation workstation: [id number] [facility] Lipoprotein a [Mass/Vol] 11 mg/dL Normal <30 [facility] Comment on above: Order Comment: Pineda davis Type: BLOOD SPECIMEN Ordering Facility: [facility] Address: [address] [place] [address] Performed By: #### 1 0835-7 #### [facility] CLIA [id number] [address] [place] [address] [place] Lipid 1996 panelon 4 Cholesterol [Mass/Vol] 262 mg/dL High <200 [facility] Comment on above: Order Comment: Pineda davis Type: BLOOD SPECIMEN Ordering Facility: [facility] Address: [address] [place] [address] Result Comment: <200 mg/dL, Desirable 200-239 mg/dL, Borderline high >239 mg/dL, High Performed By: #### 2 4331-1 #### [facility] CLIA [id number] [address] [place] [address] [place] [facility] CLIA [id number] [address] [place] [address] [place] Cholesterol in HDL [Mass/Vol] 44 mg/dL Normal >39 [facility] Comment on above: Order Comment: Pineda davis Type: BLOOD SPECIMEN Ordering Facility: [facility] Address: [address] [place] [address] Result Comment: 40-5 9 mg/dL, Acceptable >59 mg/dL, High: Negative risk factor for coronary heart disease <40 mg/dL, Low: Positive risk factor for coronary heart disease Performed By: #### 2 4331-1 #### [facility] CLIA [id number] [address] [place] [address] [facility] CLIA [id number] [address] [place] [address] [place] Cholesterol in LDL [Mass/Vol] 200 mg/dL High <100 [facility] Comment on above: Order Comment: Pineda davis Type: BLOOD SPECIMEN [facility] [facility] Address: [address] [place] [address] Result Comment: <100 mg/dL, Optimal 100-129 mg/dL, Near optimal/above optimal 130-159 mg/dL, Borderline high 160-189 mg/dL, High >189 mg/dL, Very high Secondary prevention optimal LDL Cholesterol levels are recommended to be < 70 mg/dL Performed By: #### 2 4331-1 #### [facility] CLIA [id number] [address] [place] [address] [place] [facility] CLIA [id number] [address] [place] [address] [place] Cholesterol in LDL/Cholesterol in HDL [Mass ratio] 4.55 {ratio} High <2.54 [facility] Comment on above: Order Comment: Pineda davis Type: BLOOD SPECIMEN Ordering Facility: [facility] Address: [address] [place] [address] Result Comment: Ac chamorro: 1. National Cholesterol Education Program ATP III Guideline At-A-Glance Quick Desk Reference: National Heart, Lung, and Blood [place]. National Institutes of Health. 2001: NIH Publication No. 01-3305. 2. An International Atherosclerosis Society position paper: global recommendations for the management of dyslipidemia: executive summary, Atherosclerosis. 2014: 232(2):410-413. Performed By: #### 2 4331-1 #### [facility] CLIA [id number] [address] [place] [address] [facility] CLIA [id number] [address] [place] [address] [place] Cholesterol in VLDL [Mass/Vol] 18 mg/dL Normal <30 [facility] Comment on above: Order Comment: Speci men Type: BLOOD SPECIMEN Ordering Facility: [facility] Address: [address] [place] [address] Performed By: #### 2 4331-1 #### [facility] CLIA [id number] [address] [place] [address] [facility] CLIA [id number] [address] [place] [address] [place] Cholesterol non HDL [Mass/Vol] 218 mg/dL High <130 [facility] Comment on above: Order Comment: Pineda davis Type: BLOOD SPECIMEN Ordering Facility: [facility] Address: [address] [place] [address] Result Comment: <130 mg/dL, Optimal 130-159 mg/dL, Near optimal/above optimal 160-189 mg/dL, Borderline high 190-219 mg/dL, High >219 mg/dL, Very high Secondary prevention optimal non HDL Cholesterol levels are recommended to be <100 mg/dL Performed By: #### 2 4331-1 #### [facility] CLIA [id number] [address] [place] [address] [place] [facility] CLIA [id number] [address] [place] [address] [place] Cholesterol.total/ Cholesterol in HDL [Mass ratio] 5.95 {ratio} High <5.10 [facility] Comment on above: Order Comment: Speci men Type: BLOOD SPECIMEN Ordering Facility: [facility] Address: [address] [place], [place] [address] Performed By: #### 2 4331-1 #### [facility] CLIA [id number] [address] [place] [address] [place] [facility] CLIA [id number] [address] [place] [address] [place] FASTING TIME 13 hrs Normal [facility] Comment on above: Order Comment: Speci men Type: BLOOD SPECIMEN Ordering Facility: [facility] Address: [address] [place] [address] Performed By: #### 2 4331-1 #### [facility] CLIA [id number] [address] [place] [address] [facility] CLIA [id number] [address] [place] [address] [place] Triglyceride [Mass/Vol] 89 mg/dL Normal <150 [facility] Comment on above: Order Comment: Speci men Type: BLOOD SPECIMEN Ordering Facility: [facility] Address: [address] [place] [address] Result Comment: <150 mg/dL, Normal 150-199 mg/dL, Borderline high 200-499 mg/dL, High >499 mg/dL, Very high Performed By: #### 2 4331-1 #### [facility] CLIA [id number] [address] [place] [address] [place] [facility] [id number] [address] [place] [address] [place] BN MRI SHOULDER W/O CONTRAST on 02-10-2022 BN MRI SHOULDER W/O CONTRAST Patient Name: MARYURI CHOI STUDY: MRI of the Right shoulder with out IV contrast INDICATION: Impingement syndrome of right shoulder COMPARISON: None. ACCESSION NUMBER(S): [id number] ORDERING CLINICIAN: CHAPARRO KNAPIC TECHNIQUE: Multiplanar multisequence MRI of the Right shoulder was performed without intravenous contrast. FINDINGS: Acromioclavicular Joint: Type 1 acromion. Moderate degenerative changes of AC joint noted. No significant subacromial osteophyte formation seen. There is some obliteration of the fat superficial to the supraspinatus myotendinous junction with downward mass effect on the supraspinatus muscle belly by the acromioclavicular joint degenerative change no evidence for abnormal increased fluid in the subacromial bursa. Biceps Tendon: The intra and extra articular portion of the biceps tendon are within normal limits. Rotator Cuff: There is mild partial-thickness articular surface tearing at the insertion of the mid to posterior supraspinatus tendon and anterior infraspinatus tendon. Teres minor and subscapularis tendons are within normal limits. Muscles: Normal signal intensity and volume. No evidence of muscular edema or atrophy. Labrum: Evaluation of labrum is limited due to lack of intraarticular contrast. There is mild tearing of the glenoid labrum circumferentially. Articular Cartilage: The articular cartilage of the glenoid and humeral head are intact. Bones: The marrow signal of the humeral head is within normal limits. No evidence acute fracture or contusion. No evidence of subcoracoid impingement. Nerves: No evidence of mass effect in the region of the quadrilateral space or suprascapular nerve. Other: There is a fusiform fluid collection along the myotendinous junction of the anterior infraspinatus muscle likely representing an intramuscular ganglion cyst. IMPRESSION: 1. Mild supraspinatus and infraspinatus tendinosis with mild undersurface tearing as above. 2. Moderate AC joint degenerative changes with findings which in the appropriate clinical setting can be seen with external impingement of the shoulder I personally reviewed the images/study and I agree with the findings as stated. This study was interpreted at [facility], [place], [place]. Electronically signed by: RAMU HAMMOND MD [facility] CORONAVIRUS(COVID-19)SARS-Co V-2 IgGon 09-07-2019 COVID-19 SARS-COV-2 IGG Negative Normal Negative [facility] Comment on above: Result Comment: . Negative results do not rule out SARS-CoV-2 (COVID-19) infection, particularly in those who have been in contact with the virus. Follow-up testing with a molecular diagnostic test should be considered to rule out acute infection in these individuals with current or recent symptoms (<14days). Results from antibody testing should not be used as the sole basis to diagnose or exclude SARS-CoV-2 infection or to inform infection status. . This test is for in vitro diagnostic use under the FDA Emergency Use Authorization (EUA) for US laboratories certified under CLIA to perform moderate or high complexity tests. This test has not been FDA cleared or approved. This test should not be used for screening of donated blood. Performed By: #### C OVGG #### [facility] [address] [place], [place] [id number] CORONAVIRUS(COVID-19)SARS-Co V-2 IgGon 09-06-2019 Lab Specimen Source Normal [facility] Comment on above: Performed By: #### C OVGG #### [facility] [address] [place], [place] [id number] Vital Signs Date Time Vital Sign Value Performing Clinician Facility 08-29-2024 14:32-0400 Body height 183 cm Blaise Hoang MD Work Phone: [facility] 08-29-2024 14:32-0400 Body height 182.88 cm Blaise oHang MD Work Phone: [facility] 08-29-2024 14:32-0400 Body mass index (BMI) [Ratio] 27.9 kg/m2 Blaise Hoang MD Work Phone: [facility] 08-29-2024 14:32-0400 Body weight 93 kg Blaise Hoang MD Work Phone: [facility] 08-29-2024 14:32-0400 Body weight 92.99 kg Blaise Hoang MD Work Phone: [facility] 08-29-2024 14:32-0400 BP SITE #1 Blaise Hoang MD Work Phone: [facility] 08-29-2024 14:32-0400 Diastolic blood pressure 77 mm[Hg] Blaise Hoang MD Work Phone: [facility] 08-29-2024 14:32-0400 Heart rate 82 /min Blaise Hoang MD Work Phone: [facility] 08-29-2024 14:32-0400 HGHTCHNVIS Blaise Hoang MD Work Phone: [facility] 08-29-2024 14:32-0400 Systolic blood pressure 138 mm[Hg] Blaise Hoang MD Work Phone: [facility] 08-29-2024 14:32-0400 VITALSDONE Blaise Hoang MD Work Phone: [facility] 02-05-2024 09:01-0500 Body mass index (BMI) [Ratio] 28.05 kg/m2 Mo Summers MD Work Phone: [facility] 02-05-2024 09:01-0500 Body temperature 101.3 [degF] Mo Summers MD Work Phone: [facility] 02-05-2024 09:01-0500 Body weight 93.8 kg Mo Summers MD Work Phone: [facility] 02-05-2024 09:01-0500 Diastolic blood pressure 82 mm[Hg] Mo Summers MD Work Phone: [facility] 02-05-2024 09:01-0500 Heart rate 97 /min Mo Summers MD Work Phone: [facility] 02-05-2024 09:01-0500 Respiratory rate 16 /min Mo Summers MD Work Phone: [facility] 02-05-2024 09:01-0500 SaO2% (BldA) [Mass fraction] 96 % Mo Summers MD Work Phone: [facility] 02-05-2024 09:01-0500 Systolic blood pressure 142 mm[Hg] Mo Summers MD Work Phone: [facility] 07-25-2022 14:04-0400 Body height 182.9 cm Lavelle Mizanin PA-C Work Phone: [facility] 07-25-2022 14:04-0400 Body weight 93.89 kg Lavelle Mizanin PA-C Work Phone: [facility] 07-25-2022 14:04-0400 Diastolic blood pressure 81 mm[Hg] Lavelle Mizanin PA-C Work Phone: [facility] 07-25-2022 14:04-0400 Heart rate 64 /min Lavelle Mizanin PA-C Work Phone: [facility] 07-25-2022 14:04-0400 SaO2% (BldA) [Mass fraction] 100 % Lavelle Mizanin PA-C Work Phone: [facility] 07-25-2022 14:04-0400 Systolic blood pressure 128 mm[Hg] Lavelle Mizanin PA-C Work Phone: [facility] Encounters Encounter Date Encounter Type Care Provider Facility Start: 11-28-2024 End: 11-28-2024 ambulatory LAVELLE L MIZANIN Facility:[facility] Start: 11-28-2024 Encounter for genera l adult medical examination without abnormal findings LAVELLE L MIZANIN [facility] Start: 11-11-2024 End: 11-11-2024 ambulatory LAVELLE L MIZANIN Facility:[facility] Start: 11-11-2024 Encounter for genera l adult medical examination without abnormal findings LAVELLE MIZANIN [facility] Start: 08-29-2024 Visit out of hours Blaise parra MD Work Phone: [employer] Work Phone: Start: 08-29-2024 In-person encounter Blaise alston MD Work Phone: [facility] Work Phone: Start: 02-06-2024 End: 02-09-2024 Telephone encounter Lavelle Perez [place] PA-C Work Phone: [facility] Comment on above: Results Start: 02-05-2024 End: 02-05-2024 Subsequent hospital visit by physician Bev [facility] Work Phone: Radiology Start: 02-05-2024 End: 02-05-2024 ambulatory MO SUMMERS Facility:[facility] Start: 02-05-2024 End: 02-05-2024 Office outpatient visit 25 minutes Mo Summers MD Work Phone: [facility] Comment on above: Influenza-like illne ss (Primary Dx); Acute cough Start: 02-03-2024 End: 02-03-2024 ambulatory [facility] Start: 02-03-2024 End: 02-03-2024 Subsequent hospital visit by physician Zeferino Clancy [facility] Comment on above: Encounter for screen ing for cardiovascular disorders Start: 01-10-2024 End: 01-10-2024 ambulatory Lavelle Chris Cheyenne PA-C Work Phone: [facility] Comment on above: Cholesterol Start: 01-10-2024 End: 01-10-2024 E-mail encounter from caregiver Lavelle Perez Jaidaanin PA-C Work Phone: [facility] Start: 01-09-2024 End: 01-09-2024 ambulatory LAVELLE CALIX Facility:[facility] Start: 11-29-2023 End: 11-30-2023 ambulatory Lavelle Senaanin PA-C Work Phone: [facility] Comment on above: Cholesterol Test Start: 10-13-2023 End: 10-13-2023 Orders Only Lavelle Senaanin PA-C Work Phone: [facility] Comment on above: Routine general medi jose examination at a health care facility (Primary Dx) Start: 10-13-2023 End: 10-13-2023 Patient encounter status Lavelle Calix PA-C Work Phone: [facility] Work Phone: Start: 10-19-2022 Telephone encounter Lavelle Calix PA-C Work Phone: Internal [facility] Comment on above: Patient Update (CPAP ) Start: 08-15-2022 [facility] Work Phone: Neurology Start: 07-28-2022 ambulatory Lavelle jackin PA-C Work Phone: [facility] Comment on above: Labs results/Sugar Start: 07-28-2022 E-mail encounter lawrence pedro caregiver Lavelle Chris Senaanin PA-C Work Phone: [facility] Start: 07-25-2022 End: 07-25-2022 Initial preventive medicine new patient 40-64yrs Lavelle Calix PA-C Work Phone: [facility] Comment on above: Routine general medi jose examination at a health care facility (Primary Dx); Degenerative joint disease of acromioclavicular joint; Screening for malignant neoplasm of the rectum; Special screening for malignant neoplasms, colon; Fatigue, unspecified type; Need for hepatitis C screening test; Screening for HIV (human immunodeficiency virus); Screening PSA (prostate specific antigen); Lipid screening; Snoring Start: 07-25-2022 End: 07-25-2022 Patient encounter status Lavelle Calix PA-C Work Phone: [facility] Start: 04-06-2022 Orders Only Monster Manley MD Work Phone: Orthopaedics Comment on above: Right knee pain, uns pecified chronicity (Primary Dx) Start: 02-10-[address] Chaparro Emery Facility:[id number] Procedures Date Procedure Procedure Detail Performing Clinician Start: 08-29-2024 Blood pressure withi n normal parameters - no follow-up required Blaise Hoang MD Work Phone: Start: 08-29-2024 BMI documented as ab ove normal parameters - follow-up documented Blaise Hoang MD Work Phone: Start: 08-29-2024 Current tobacco non- user cad cap copd pv dm Blaise Hoang MD Work Phone: Start: 08-29-2024 Documentation of cur rent medications Blaise Hoang MD Work Phone: Start: 08-29-2024 Pain assessment docu mented as negative - follow-up not required Blaise Hoang MD Work Phone: Start: 02-05-2024 COVID & INFLUENZA A/ B & RSV PCR, ROUTINE Mo Summers MD Work Phone: Start: 02-05-2024 INFLUENZA A&B MOLECU LAR (POC) Mo Summers MD Work Phone: Start: 01-09-2024 Lipid 1996 panel - S fito or Plasma Lavelle Mizanin PA-C Work Phone: Start: 11-28-2023 Adult depression scr eening assessment Lavelle Mizanin PA-C Work Phone: Start: 11-13-2023 Lipid 1996 panel - S fito or Plasma Lavelle Mizanin PA-C Work Phone: Start: 07-27-2022 Lipid 1996 panel - S fito or Plasma Lavelle Mizanin PA-C Work Phone: Plan of Treatment Date Care Activity Detail Author Start: 01-08-2029 Lipid panel Lipid Screening [facility] Start: 11-12-2028 Lipid panel Lipid Screening [facility] Start: 07-28-2027 Lipid 1996 panel - Serum or Plasma Lipid Screening [facility] Start: 07-28-2027 Lipid panel Lipid Screening [facility] Start: 07-28-2027 LIPID SCREEN LIPID SCREEN [facility] Start: 11-12-2026 Diabetes Screening Diabetes Screenin g [facility] Start: 08-02-2025 COLOGUARD (FIT-DNA) COLOGUARD (FIT-D NA) [facility] Start: 08-02-2025 COLORECTAL CANCER SCREENING COLORECTAL CANCER SCREENING [facility] Start: 08-02-2025 Screening for malign ant neoplasm of colon [facility] Start: 07-27-2025 DIABETES SCREEN DIABETES SCREEN [facility] Start: 07-27-2025 Diabetes Screening Diabetes Screenin g [facility] Start: 11-28-2024 End: 11-28-2024 Patient encounter procedure 11/28/2024 2:40 PM EDT Office Visit Internal Medicine [facility] [address] [place], [place] [id number] Lavelle Calix PA-C [address] [place] [address] 1 year Physical with labs Internal Medicine [facility] Comment on above: 1 year Physical with labs Start: 11-27-2024 Anxiety Screening Anxiety Screening [facility] Start: 11-27-2024 Covid-19 Vaccine ( season) Covid-19 Vaccine ( season) [facility] Comment on above: Postponed from 10/07 (Declined at this time) Start: 11-27-2024 Depression Screening Depression Scre ening [facility] Start: 08-05-2024 Influenza vaccination Influenza Vacc ine (#1) [facility] Comment on above: Postponed from 10/07 (Declined at this time) Start: 01-09-2024 End: 01-09-2024 ambulatory 01/09/2024 7:00 AM EST Results Only [place] [facility] [address] [place] [address] 6 weeks Labs [place] [facility] Comment on above: 6 weeks Labs Start: 11-12-2023 End: 02-11-2024 CBC W Auto Differential panel - Blood COMPLETE BLOOD COUNT AND DIFFERENTIAL Lab Routine Routine general medical examination at a health care facility Expected: 11/12/2023 (Approximate), Expires: 02/11/2024 [facility] Work Phone: Comment on above: Expected: 11/12/2023 (Approximate), Expires: 02/11/2024 Start: 11-12-2023 End: 02-11-2024 Comprehensive metabolic 2000 panel - Serum or Plasma COMPREHENSIVE METABOLIC PANEL Lab Routine Routine general medical examination at a health care facility Expected: 11/12/2023 (Approximate), Expires: 02/11/2024 [facility] Comment on above: Expected: 11/12/2023 (Approximate), Expires: 02/11/2024 Start: 11-12-2023 End: 02-11-2024 Hemoglobin A1c in Blood HEMOGLOBIN A1C Lab Routine Routine general medical examination at a health care facility Expected: 11/12/2023 (Approximate), Expires: 02/11/2024 [facility] Comment on above: Expected: 11/12/2023 (Approximate), Expires: 02/11/2024 Start: 11-12-2023 End: 02-11-2024 Lipid 1996 panel - Serum or Plasma LIPID PANEL BASIC Lab Routine Routine general medical examination at a health care facility Expected: 11/12/2023 (Approximate), Expires: 02/11/2024 [facility] Comment on above: Expected: 11/12/2023 (Approximate), Expires: 02/11/2024 Start: 11-12-2023 End: 02-11-2024 PSA/PROSTATE SPECIFIC ANTIGEN SCREENING PSA/PROSTATE SPECIFIC ANTIGEN SCREENING Lab Routine Routine general medical examination at a health care facility Expected: 11/12/2023 (Approximate), Expires: 02/11/2024 [facility] Comment on above: Expected: 11/12/2023 (Approximate), Expires: 02/11/2024 Start: 11-12-2023 End: 02-11-2024 Thyrotropin [Units/volume] in Serum or Plasma THYROID STIMULATING HORMONE Lab Routine Routine general medical examination at a health care facility Expected: 11/12/2023 (Approximate), Expires: 02/11/2024 [facility] Comment on above: Expected: 11/12/2023 (Approximate), Expires: 02/11/2024 Start: 11-10-2023 End: 11-10-2023 Patient encounter procedure 11/10/2023 2:00 PM EDT Office Visit Internal Medicine [place] [address] [place] [address] Lavelle Calix PA-C [address] [place] [address] Reason for visit: Primary Care Internal Medicine [facility] Comment on above: Reason for visit: Pr imary Care Start: 10-08-2023 Covid-19 Vaccine () Covid-19 Vaccine () [facility] Start: 10-08-2023 COVID-19 Vaccine () COVID-19 Vaccine () [facility] Start: 10-08-2023 Influenza vaccination Influenza Vacc ine (#1) [facility] Start: 07-26-2023 COVID-19 VACCINE (#1) COVID-19 VACCI NE (#1) [facility] Comment on above: Postponed from 07/30 (Declined at this time) Start: 07-26-2023 SHINGRIX VACCINE (1 of 2) SHINGRIX VACCINE (1 of 2) [facility] Comment on above: Postponed from 01/29 (Declined at this time) Start: 07-26-2023 Urine microalbumin profile [facility] Comment on above: Postponed from 01/29 (Declined at this time) Start: 10-07-2022 Influenza vaccination [facility] Start: 07-28-2022 End: 09-27-2022 Hemoglobin A1c in Blood HGB A1C Lab Routine Elevated glucose Expected: 07/28/2022, Expires: 09/27/2022 [facility] Work Phone: Comment on above: Expected: 07/28/2022 , Expires: 09/27/2022 Start: 07-28-2022 End: 09-27-2022 TESTOSTERONE, FREE AND TOTAL TESTOSTERONE, FREE AND TOTAL Lab Routine Fatigue, unspecified type Expected: 07/28/2022, Expires: 09/27/2022 [facility] Work Phone: Comment on above: Expected: 07/28/2022 , Expires: 09/27/2022 Start: 07-25-2022 End: 09-24-2022 25-hydroxyvitamin D3 [Mass/volume] in Serum or Plasma VITAMIN D 25 HYDROXY Lab Routine Fatigue, unspecified type Expected: 07/25/2022 (Approximate), Expires: 09/24/2022 [facility] Work Phone: Comment on above: Expected: 07/25/2022 (Approximate), Expires: 09/24/2022 Start: 07-25-2022 End: 09-24-2022 CBC W Auto Differential panel - Blood CBC + DIFF Lab Routine Routine general medical examination at a health care facility Expected: 07/25/2022 (Approximate), Expires: 09/24/2022 [facility] Work Phone: Comment on above: Expected: 07/25/2022 (Approximate), Expires: 09/24/2022 Start: 07-25-2022 End: 09-24-2022 Comprehensive metabolic 2000 panel - Serum or Plasma COMP METABOLIC PANEL Lab Routine Routine general medical examination at a health care facility Expected: 07/25/2022 (Approximate), Expires: 09/24/2022 [facility] Work Phone: Comment on above: Expected: 07/25/2022 (Approximate), Expires: 09/24/2022 Start: 07-25-2022 End: 09-24-2022 Hepatitis C virus Ab [Presence] in Serum HEP C AB IA W/CONF SCRN Lab Routine Need for hepatitis C screening test Expected: 07/25/2022, Expires: 09/24/2022 [facility] Work Phone: Comment on above: Expected: 07/25/2022 , Expires: 09/24/2022 Start: 07-25-2022 End: 09-24-2022 HIV 1+2 Ab [Presence] in Serum or Plasma by Immunoassay HIV 1 2 COMBO(AG/AB),WITH REFLEX TO DIFFERENTIATION Lab Routine Screening for HIV (human immunodeficiency virus) Expected: 07/25/2022, Expires: 09/24/2022 [facility] Work Phone: Comment on above: Expected: 07/25/2022 , Expires: 09/24/2022 Start: 07-25-2022 End: 09-24-2022 Lipid 1996 panel - Serum or Plasma LIPID PANEL BASIC Lab Routine Routine general medical examination at a health care facility Lipid screening Expected: 07/25/2022, Expires: 09/24/2022 [facility] Work Phone: Comment on above: Expected: 07/25/2022 , Expires: 09/24/2022 Start: 07-25-2022 End: 09-24-2022 PSA/PROSTSPECAG SCRN PSA/PROSTSPECAG SCRN Lab Routine Screening PSA (prostate specific antigen) Expected: 07/25/2022, Expires: 09/24/2022 [facility] Work Phone: Comment on above: Expected: 07/25/2022 , Expires: 09/24/2022 Start: 07-25-2022 End: 09-24-2022 Thyrotropin [Units/volume] in Serum or Plasma TSH BLD Lab Routine Routine general medical examination at a health care facility Expected: 07/25/2022 (Approximate), Expires: 09/24/2022 [facility] Work Phone: Comment on above: Expected: 07/25/2022 (Approximate), Expires: 09/24/2022 Start: 07-25-2022 End: 09-24-2022 URINALYSIS, REFLEX MICROSCOPIC URINALYSIS, REFLEX MICROSCOPIC Lab Routine Routine general medical examination at a health care facility Expected: 07/25/2022 (Approximate), Expires: 09/24/2022 [facility] Work Phone: Comment on above: Expected: 07/25/2022 (Approximate), Expires: 09/24/2022 Start: 02-06-2022 DEPRESSION ASSESSMENT DEPRESSION ASS ESSMENT [facility] Start: 10-07-2021 Influenza vaccination INFLUENZA (#1) [facility] Start: 01-30-2020 Pneumococcal vaccination Pneumococcal Vaccine (1 of 1 - PCV) [facility] Start: 01-30-2020 Pneumococcal Vaccine : 50+ (1 of 1 - PCV) Pneumococcal Vaccine: 50+ (1 of 1 - PCV) [facility] Start: 01-30-2020 SHINGRIX VACCINE (1 of 2) SHINGRIX VACCINE (1 of 2) [facility] Start: 01-30-2020 Zoster Vaccines (1 o f 2) Zoster Vaccines (1 of 2) [facility] Start: 2015 COLOGUARD (FIT-DNA) COLOGUARD (FIT-D NA) [facility] Start: 2015 Colonoscopy COLONOSCOPY [facility] Start: 2015 COLORECTAL CANCER SCREENING COLORECTAL CANCER SCREENING [facility] Start: [address] COLONOGRAPHY [facility] Start: 2015 DIABETES SCREEN DIABETES SCREEN [facility] Start: 2015 FECAL OCCULT BLOOD FECAL OCCULT BLOO D [facility] Start: 2015 Screening for malign ant neoplasm of colon [facility] Start: 2015 SIGMOIDOSCOPY SIGMOIDOSCOPY [facility] Start: 2005 LIPID SCREEN LIPID SCREEN [facility] Start: 01-30-1992 DTaP/Tdap/Td Vaccine s (1 - Tdap) DTaP/Tdap/Td Vaccines (1 - Tdap) [facility] Start: 1989 Hepatitis B Vaccines (1 of 3 - 19+ 3-dose series) Hepatitis B Vaccines (1 of 3 - 19+ 3-dose series) [facility] Start: 1989 Urine microalbumin profile [facility] Start: 01-30-1988 Anxiety Screening Anxiety Screening [facility] Start: 01-30-1988 Depression Screening Depression Scre ening [facility] Start: 01-30-1988 HEPATITIS C SCREENING HEPATITIS C [facility] Start: 01-30-1988 Hepatitis C screening Hepatitis C [facility] Start: 01-30-1988 HIV SCREENING HIV SCREENING [facility] Start: 1971 MMR Vaccines (1 of 1 - Standard series) MMR Vaccines (1 of 1 - Standard series) [facility] Start: 1970 COVID-19 VACCINE (#1) COVID-19 VACCI NE (#1) [facility] Start: 1970 HEPATITIS B (1 of 3 - 3-dose series) HEPATITIS B (1 of 3 - 3-dose series) [facility] Start: 1970 HIV screening HIV Screening [facility] Start: 1970 Lipid panel Lipid Panel [facility] Start: 1970 Screening for malign ant neoplasm of colon [facility] Start: 1970 Yearly Adult Physical Yearly Adult P hysical [facility] COLOGUARD COLOGUARD Lab Ro utine Screening for malignant neoplasm of the rectum Special screening for malignant neoplasms, colon Ordered: 07/25/2022 [facility] Work Phone: Comment on above: Ordered: 07/25/2022 End: 02-03-2024 CT for calcium scoring WO contrast and CTA W contrast IV Heart and coronary arteries [facility] Service Area Work Phone: Comment on above: Once for 1 Occurrenc es starting 02/03/2024 until 02/03/2024 End: 07-25-2023 HOME SLEEP APNEA TEST (HSAT) HOME SLEEP APNEA TEST (HSAT) Procedures Routine Fatigue, unspecified type Snoring 1 Occurrences starting 07/25/2022 until 07/25/2023 [facility] Work Phone: Comment on above: 1 Occurrences starti ng 07/25/2022 until 07/25/2023 End: 03-06-2025 XR Chest PA and Lateral XR CHEST 2V FRONTAL/LAT Radiology STAT Acute cough 1 Occurrences starting 02/05/2024 until 03/06/2025 [facility] Work Phone: Comment on above: 1 Occurrences starti ng 02/05/2024 until 03/06/2025 End: 05-06-2023 XR KNEE GENERAL 4V AP BOTH/PA BOTH/LAT/MERC RIGHT XR KNEE GENERAL 4V AP BOTH/PA BOTH/LAT/MERC RIGHT Radiology Routine Right knee pain, unspecified chronicity 1 Occurrences starting 04/06/2022 until 05/06/2023 [facility] Work Phone: Comment on above: 1 Occurrences starti ng 04/06/2022 until 05/06/2023 [facility] Immunizations Immunization Date Immunization Notes Care Provider Fa alexandru 11-29-2019 influenza virus vacc ine, unspecified formulation [address] Work Phone: Payers Date Payer Category Payer Managed Care (Private) MEDICAL M [facility] MED [id number] 2021 Unknown [id number] 2018 Unknown [id number] 2018 Unknown [id number] 1970 Unknown [id number] 1970 Unknown [id number] Social History Date Type Detail Facility Start: 07-25-2022 Tobacco smoking stat [facility] Never smoked tobacco [facility] Work Phone: Start: 09-23-2014 End: 02-05-2024 Alcohol intake Current drinker of alcohol (finding) [facility] Start: 09-23-2014 End: 07-25-2022 Alcohol intake [facility] Start: 1970 Sex Assigned At Not on file [facility] Start: 07-25-2022 Tobacco use and exposure Smokeless tobacco non-user [facility] Start: 07-24-2022 History SDOH Alcohol Frequency 4 [facility] Start: 07-24-2022 History SDOH Alcohol Std Drinks 1 [facility] Start: 07-24-2022 History SDOH Social Connections Get Together 2 [facility] Start: 07-24-2022 History SDOH Social Connections Christian 3 [facility] Start: 07-24-2022 History SDOH Physica l Activity DPW 5 [facility] Start: 07-24-2022 History SDOH Physica l Activity MPS 6 [facility] Start: 07-25-2022 Alcohol Comment 1-2 beers 2-3x per week [facility] Start: 1970 Sex Assigned At Male [facility] Start: 07-24-2022 End: 08-29-2024 Social connection and isolation panel [facility] Do you belong to any clubs or organizations such as congregation groups, unions, fraternal or athletic groups, or school groups? Yes [facility] Are you now , , , , never or living with a partner? [facility] How often to you hav e a drink containing alcohol? 2-3 time sa week [facility] How many standard drinks containing alcohol do you have on a typical day? 1 or 2 [facility] How often do you hav e 6 or more drinks on 1 occasion? Never [facility] How hard is it for y ou to pay for the very basics like food, housing, medical care, and heating Not hard at all [facility] Do you feel stress - tense, restless, nervous, or anxious, or unable to sleep at night because your mind is troubled all the time - these days [OSQ] Only a little [facility] (I/We) worried derrick er (my/our) food would run out before (I/we) got money to buy more. Never true [facility] In the past 12 month s, was there a time when you were not able to pay the mortgage or rent on time? No [facility] Start: 05-02-2022 Gender identity Identifies as male gender (finding) [facility] Start: 07-24-2022 Sexual orientation Heterosexual ([place]) [facility] Do you feel stress - tense, restless, nervous, or anxious, or unable to sleep at night because your mind is troubled all the time - these days [OSQ] Not at all [facility] Tobacco smoking stat us SCIS Tobacco smoking consumption unknown [facility] Work Phone: Start: 01-24-2024 End: 02-03-2024 Exposure to SARS-CoV-2 (event) Not sure [facility] NEGATED: Highlighted rowStart: NINF History of tobacco use Passive smoker [facility] Clinical Notes 07-25-2022 to 11-28-2024 Mo Summers MD - 02/05/2024 9:10 AM ESTTelephone Encounter - DrummondLakeisha corriganKATHARINA issa - 10/19/2022 9:58 AM Dyan Elizabeth JOSE - 08/23/2022 2:18 PM Dyan Elizabeth JOSE - 08/16/2022 8:32 PM EDT Note Date & Type Note Facility 11-28-2024 Note HNO ID: [id number] Author: LAVELLE CALIX PA-C Service: ? Author Type: Physician Repair Clerk Type: Progress Notes Filed: 11/28/2024 15:29 Note Text: Subjective Maryuri Choi is a 54 year old male. HPI Patient here for an annual well exam. LOVE: He has known LOVE based on HST - refuses CPAP as he had difficulty getting adjusted to it. Not interested in [facility] HLD: He has known HLD. Compliant with atorvastatin daily. Known family history of CAD - mother needed a stent for CAD in 60s, MGM had heart issue but unsure what. His tells him he has some hearing loss. He admits that with his former career ([employer]) it was common to have L sided hearing loss based on the location of a speaker for the work radio (L side of car). He feels he's doing okay with his hearing. His mood is doing well without any features of anxiety or depression. His appetite is good without any unintentional weight loss. He denies any fever or chills. He denies any CP, SOB, PND, Orthopnea or syncope. No abdominal pain, N/V/C/D. No active urinary concerns. Review of Systems All other systems reviewed and are negative. Objective BP 125/80 Pulse 60 Temp 36.3 ?C (97.4 ?F) (Temporal) Ht 182.9 cm (6') Wt 95.8 kg (211 lb 3.2 oz) SpO2 99% BMI 28.64 kg/m? Physical Exam Constitutional: General: He is not in acute distress. HENT: Head: Normocephalic and atraumatic. Right Ear: External ear normal. Left Ear: External ear normal. Eyes: Extraocular Movements: Extraocular movements intact. Conjunctiva/sclera: Conjunctivae normal. Cardiovascular: Rate and Rhythm: Normal rate and regular rhythm. Heart sounds: No murmur heard. Pulmonary: Effort: Pulmonary effort is normal. Breath sounds: Normal breath sounds. Abdominal: General: Bowel sounds are normal. Palpations: Abdomen is soft. Tenderness: There is no abdominal tenderness. Musculoskeletal: Cervical back: Neck supple. No rigidity. Lymphadenopathy: Head: Right side of head: No submental, submandibular, tonsillar, preauricular, posterior auricular or occipital adenopathy. Left side of head: No submental, submandibular, tonsillar, preauricular, posterior auricular or occipital adenopathy. Cervical: No cervical adenopathy. Skin: General: Skin is warm and dry. Findings: No rash. Neurological: Mental Status: He is alert. Mental status is at baseline. Psychiatric: Mood and Affect: Mood normal. Speech: Speech normal. Behavior: Behavior normal. Thought Content: Thought content normal. Judgment: Judgment normal. Assessment AND Plan Routine general medical examination at a health care facility Labs - reviewed CBC CMP Lipids - MUCH improved with atorvastatin! TSH PSA UA Preventative Cologuard 08/02/2022 neg Discussed will be due 08/02/2025 for colon cancer sceening - Cologuard vs colonoscopy vs iFOBT Vaccinations Declines Shingrix, Flu, COVID, Pneumococcal LOVE - unable to tolerate CPAP - hesitant to consider [facility] - Avoid driving when sleepy Lavelle Calix PA-C [facility] 02-05-2024 Note HNO ID: [id number] Author: MO SUMMERS MD Service: ? Author Type: Physician Type: Progress Notes Filed: 02/05/2024 16:35 Note Text: Patient presents with: Cough: Cough, chest congestion, fever and bodyaches x 6 days HPI: Feeling sick for 7 days. He and his were sick with URI symptoms. He felt back to normal yesterday but woke very ill this morning. This reminds him of when he had pneumonia (2014). No COVID testing during this illness. Positive symptoms: Cough, Fever, Body Aches, Shortness of breath, Sore throat, Nasal Congestion, Rhinorrhea, Chills, Body Aches, Malaise, Fatigue, Headache, Nausea, thrsty Negative symptoms: Chest pain, Earache, Vomiting, Diarrhea, OTC: Tylenol MEDICATIONS: Current Outpatient Medications Medication Sig atorvastatin (LIPITOR) 20 mg tablet Take 1 tablet by mouth once daily. CPAP/BIPAP/OTHER Type .CPAPSettings into a note to see current settings/supplies/DME information. (Patient not taking: Reported on 11/28/2023) No current facility-administered medications for this visit. ALLERGIES: ALLERGIES No Known Allergies VITALS: BP 142/82 Pulse 97 Temp (!) 38.5 ?C (101.3 ?F) (Tympanic) Resp 16 Wt 93.8 kg (206 lb 12.7 oz) SpO2 96% BMI 28.05 kg/m? PHYSICAL EXAM: GEN: ill appearing, alert HEENT: PERRL, EOMI, conjunctiva clear Ears: canals clear. TMs without erythema, bulge, or effusion Sinuses: non-tender frontal sinus, non-tender maxillary sinuses Throat: moist mucous membranes, mild erythema, no exudate Neck: supple, no thyromegaly, no lymphadenopathy HEART: regular rate, regular rhythm, no murmurs LUNGS: clear to auscultation, no wheezes or crackles, no increased WOB ASSESSMENT/PLAN: 1. Influenza-like illness - ICD9: 487.1, ICD10: J11.1 (primary diagnosis) 2. Acute cough - ICD9: 786.2, ICD10: R05.1 - suspect new viral URI today, differential includes COVID-19 and influenza. - Discussed supportive care treatment with home isolation (fever free for 24 hours and improving symptoms), rest, cold medicine, and analgesia. - Red flags to seek further treatment include chest pain, shortness of breath, and lethargy; in the ER if severe. - INFLUENZA AANDB MOLECULAR (POC) - negative - COVID AND INFLUENZA A/B AND RSV PCR, ROUTINE - declines antiviral if COVID positive - XR CHEST 2V FRONTAL/LAT to look for occult pneumonia. To be completed at [facility] and will call with results since xray is not available here this morning because of maintenance. Mo Summers MD [facility] 02-05-2024 History of Presen t illness Narrative Patient presents with: Cough: Cough, chest congestion, fever and bodyaches x 6 days HPI: Feeling sick for 7 days. He and his were sick with URI symptoms. He felt back to normal yesterday but woke very ill this morning. This reminds him of when he had pneumonia (2015). No COVID testing during this illness. Positive symptoms: Cough, Fever, Body Aches, Shortness of breath, Sore throat, Nasal Congestion, Rhinorrhea, Chills, Body Aches, Malaise, Fatigue, Headache, Nausea, thrsty Negative symptoms: Chest pain, Earache, Vomiting, Diarrhea, OTC: Tylenol MEDICATIONS: Current Outpatient Medications Medication Sig atorvastatin (LIPITOR) 20 mg tablet Take 1 tablet by mouth once daily. CPAP/BIPAP/OTHER Type .CPAPSettings into a note to see current settings/supplies/DME information. (Patient not taking: Reported on 11/28/2023) No current facility-administered medications for this visit. ALLERGIES: ALLERGIES No Known Allergies VITALS: BP 142/82 Pulse 97 Temp (!) 38.5 C (101.3 F) (Tympanic) Resp 16 Wt 93.8 kg (206 lb 12.7 oz) SpO2 96% BMI 28.05 kg/m PHYSICAL EXAM: GEN: ill appearing, alert HEENT: PERRL, EOMI, conjunctiva clear Ears: canals clear. TMs without erythema, bulge, or effusion Sinuses: non-tender frontal sinus, non-tender maxillary sinuses Throat: moist mucous membranes, mild erythema, no exudate Neck: supple, no thyromegaly, no lymphadenopathy HEART: regular rate, regular rhythm, no murmurs LUNGS: clear to auscultation, no wheezes or crackles, no increased WOB ASSESSMENT/PLAN: 1. Influenza-like illness - ICD9: 487.1, ICD10: J11.1 (primary diagnosis) 2. Acute cough - ICD9: 786.2, ICD10: R05.1 - suspect new viral URI today, differential includes COVID-19 and influenza. - Discussed supportive care treatment with home isolation (fever free for 24 hours and improving symptoms), rest, cold medicine, and analgesia. - Red flags to seek further treatment include chest pain, shortness of breath, and lethargy; in the ER if severe. - INFLUENZA A&B MOLECULAR (POC) - negative - COVID & INFLUENZA A/B & RSV PCR, ROUTINE - declines antiviral if COVID positive - XR CHEST 2V FRONTAL/LAT to look for occult pneumonia. To be completed at [facility] and will call with results since xray is not available here this morning because of maintenance. Mo Summers MD documented in this encounter [facility] 10-19-2022 Miscellaneous Notes Fax from [facility] cpap & supplies. Desire to Return Equipment Against Medical Advice for signed by pt placed in [place]'s inbox for review. Lacy Drummond MA documented in this encounter [facility] 08-23-2022 History of Presen t illness Narrative Sleep Study Check-In Documentation Date: August 23, 2022 Name: Maryuri Choi Comments: HST was returned in working order with all sleep questionnaires Elizabeth JOSE August 18, 2022 Standing PSG Orders signed in the last 90 days None Future PSG Orders signed in the last 90 days Ordered Auth. provider HOME SLEEP APNEA TEST (HSAT) [[id number]] 07/25/22 Lavelle Calix PA-C Assoc. diagnoses: Fatigue, unspecified type [R53.83], Snoring [R06.83] Q: Indications: A: Obstructive sleep apnea Q: STOP-BANG conditions - Select All That Apply: A: GENDER = male A2: AGE > 50 Q: Current use of supplemental oxygen during sleep period?: A: No All Prior Sleep Studies (past 365 days) Some values may be hidden. Unless noted otherwise, only the newest values recorded on each date are displayed. 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 Indications for study: LOVE suspected without comorbid medical or sleep disorders Sleep study to be performed: Home Sleep Apnea Test (HSAT) Special instructions: None-follow laboratory protocol Yasmin Dominguez - Sleep Medicine Staff Note: I have read the above protocol, edited as needed, and agree to the plan. Carlos Mcfarland III, PhD 6:09 PM, 08/18/2022 Nomad: [id number] Date: 08/18/22 [employer] Mailout Tracking Number: [id number] [employer] Return Tracking Number: [id number] August 15, 2022 An order has been received for Home Sleep Apnea Test (HSAT) from Dr. Lavelle Calix PA-C, a B. [facility] Staff. Visit prep complete. Comments :No The sleep study is scheduled for 08-18-22. Insurance: Payor: MMO / Plan: MMO SUPERMED PPO / Product Type: PPO / Payer/Plan Subscr Sex Relation Sub. Ins. ID Effective Group Num 1. MMO - MMO SUP* MARYURI CHOI 1970 Male Self [id number] [birth year] [id number] [address] 2. ANTHEM - BLUE* OMAR CHOI 12/15/1972 Female Spouse [id number] 02/06/21 [id number] [id number] Kailyn Solano documented in this encounter [facility] 07-25-2022 History of Presen t illness Narrative Subjective HPI Patient here to establish care. He admits he does not have a PCP and has not seen one in a very long time. Most recently, he saw orthopedics for his shoulder. He's not on any medication at this time. He retired from [employer] 1 year ago - currently working for [employer]. He admits to knee pain - he presumes it's arthritis He admits to fatigue x 6 months. He's concerned it may relate to low testosterone as he talked with his friends. He admits to very low libido and ED. He had a vasectomy - does not plan on having any more children. He admits to snoring during the night and others witnessed apneic events - he reports this has been over the past several years. He goes to bed around 10 or 11pm - wakes up at 530a. He wakes up frequently during the night - sometimes has difficulty getting back to sleep. He admits he's fatigued throughout the day - even at 11am. No hx of anabolic steroid use. Never had sleep study before - though his did ask him to get checked for sleep apnea. He drinks 1-2 ETOH drinks about 2-3 times per week. He exercises 5 days a week. He tries to follow a healthy diet. He has never had colon cancer screening. He has not had COVID vaccination. He's not sure when his last tetanus vaccination was - thinks it was a long time ago. Never had Shingrix vaccination. His mood is doing well without any features of anxiety or depression. His appetite is good without any unintentional weight loss. He denies any fever or chills. He denies any CP, SOB, or syncope. No abdominal pain, N/V/C/D. No active urinary concerns. Review of Systems All other systems reviewed and are negative. 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 02/2022 Past Surgical History: PAST SURGICAL HISTORY Procedure Laterality Date VASECTOMY Family History: FAMILY HISTORY Problem Relation Age of Onset Heart Mother Rhythm issues Hypertension Mother None Father None Brother other ( from MVA) Brother Hypertension Maternal Grandmother of old age None Maternal Grandfather of old age other (Does not know them) Paternal Grandmother other (Does not know them) Paternal Grandfather None Sister Social History: Social History Tobacco Use Smoking status: Never Passive exposure: Never Smokeless tobacco: Never Substance Use Topics Alcohol use: Yes Alcohol/week: 1.7 standard drinks Types: 2 Standard drinks or equivalent per week Comment: 1-2 beers 2-3x per week Current Medications: [DISCONTINUED] albuterol HFA (VENTOLIN HFA) 90 mcg/actuation inhaler, Inhale 2 Puffs as instructed every 4 hours as needed for Wheezing/Shortness of Breath., Disp: 1 Inhaler, Rfl: 0 [DISCONTINUED] codeine-guaiFENesin (ROBITUSSIN AC) 10-100 mg/5 mL syrup, Take 5-10 mL by mouth four times daily as needed for Cough. May cause drowsiness., Disp: 120 mL, Rfl: 0 No facility-administered encounter medications on file as of 07/25/2022. Allergies: ALLERGIES No Known Allergies Vitals: BP 128/81 Pulse 64 Ht 6' 0 (1.83m) Wt 207 lb (93.9kg) SpO2 100% BMI 28.07 kg/(m^2). Objective Physical Exam Constitutional: Appearance: Normal appearance. HENT: Head: Normocephalic and atraumatic. Neck: Thyroid: No thyromegaly. Cardiovascular: Rate and Rhythm: Normal rate and regular rhythm. Heart sounds: No murmur heard. Pulmonary: Effort: Pulmonary effort is normal. Breath sounds: Normal breath sounds. Abdominal: General: Bowel sounds are normal. Palpations: Abdomen is soft. Tenderness: There is no abdominal tenderness. Musculoskeletal: Cervical back: Neck supple. Lymphadenopathy: Cervical: No cervical adenopathy. Skin: General: Skin is warm and dry. Neurological: Mental Status: He is alert and oriented to person, place, and time. Motor: Motor function is intact. Gait: Gait is intact. Psychiatric: Mood and Affect: Mood and affect normal. Judgment: Judgment normal. ASSESSMENT/PLAN: 1. Routine general medical examination at a health care facility - ICD9: V70.0, ICD10: Z00.00 (primary diagnosis) Labs ordered to be drawn in the AM around 8-9am fasting CBC CMP TSH Lipids UA PSA Vit D - due to fatigue Hep C screen HIV Screen Testosterone total and free If low - will need a repeat test and additional workup for etiology Preventative Colon cancer screening: Never had Discussed need for colon cancer screening including colonoscopy vs Cologuard. Pt opts for Cologuard with understanding if positive, needs colonoscopy. Cologuard kit ordered. Labs ordered (see above) Recommend tdap, shingrix and COVID vaccinations - pt declines Pt had Hep B series with his work previously. Fatigue Labs ordered (see above) High likelihood of LOVE based on symptoms Discussed HST vs PSG. Pt agreeable to HST. Ordered Advised if HST is negative - recommend PSG Pt admits he's apprehensive about ever considering CPAP therapy If HST positive - will have low threshold to refer to sleep medicine (Unknown if any structural etiology for ENT to address?) Encouraged annual physicals with primary care. Lavelle Calix PA-C documented in this encounter [facility] Evaluation note Diagnosis Right knee pain, unspecified chronicity- Primary [facility] Diagnosis Routine general medical examination at a health care facility- Primary Degenerative joint disease of acromioclavicular joint Osteoarthrosis, unspecified whether generalized or localized, shoulder region Screening for malignant neoplasm of the rectum Special screening for malignant neoplasms, colon Fatigue, unspecified type Need for hepatitis C screening test Special screening examination for other specified viral diseases Screening for HIV (human immunodeficiency virus) Special screening examination for other specified viral diseases Screening PSA (prostate specific antigen) Special screening for malignant neoplasm of prostate Lipid screening Screening for lipoid disorders Snoring Other dyspnea and respiratory abnormality [facility] Fatigue, unspecified type- Primary Elevated glucose Other abnormal glucose [facility] Diagnosis Routine general medical examination at a health care facility- Primary [facility] Diagnosis Encounter for screening for cardiovascular disorders documented in this encounter [facility] Work Phone: Evaluation note* Diagnosis Influenza-like illness- Primary Influenza with other respiratory manifestations Acute cough documented in this encounter [facility] note* Diagnosis Acute cough documented in this encounter [facility] for referral (narrative)* Diagnostic Procedure Only (Routine) - Pending Review Specialty Diagnoses / Procedures Referred By Contac t Referred To Contact XR IMAGING Diagnoses Right knee pain, unspecified chronicity Procedures XR KNEE GENERAL 4V AP BOTH/PA BOTH/LAT/MERC RIGHT RADIOLOGIC EXAM KNEE COMPLETE 4/MORE VIEWS Monster Manley MD [address] [place] [address] Xr Imaging Referral ID Status Reason Start Date Expiration Date Visits Requested Visits Authorized [id number] Pending Review Auto-Generat ed Referral 04/06/2022 05/06/2023 1 1 [facility] for referral (narrative)* Diagnostic Procedure Only (Routine) - Authorized Specialty Diagnoses / Procedures Referred By Contac t Referred To Contact [facility] Diagnoses Fatigue, unspecified type Snoring Procedures HOME SLEEP APNEA TEST (HSAT) SLEEP STD AIRFLOW HRT RATE&O2 SAT EFFORT UNATT Lavelle Calix PA-C [address] [place] [address] [facility] [address] [place] [id number] Referral ID Status Reason Start Date Expiration Date Visits Requested Visits Authorized [id number] Authorized Auto-Generat ed Referral 07/25/2022 07/25/2023 1 1 [facility] for visit Narrative* Imaging (Routine) - Pending Review Specialty Diagnoses / Procedures Referred By Contac t Referred To Contact Radiology Diagnoses Encounter for screening for cardiovascular disorders Procedures CT cardiac scoring wo IV contrast Lavelle Calix PA-C [address] [place] [address] Phone: tel: fax: Referral ID Status Reason Start Date Expiration Date Visits Requested Visits Authorized [id number] Pending Review Perform Procedure 4 12/21/2024 1 1 [facility] Work Phone: Summary Purpose Family History No Family History Records Found Family Member Condition Father Alive Mother High blood pressure Mother Heart disease Mother Cancer Mother Alive Advance Directives No Advanced Directives Records FoundNo Advanced Directives Records FoundNo Advanced Directives Records Found No Information Available No Advanced Directives Records FoundNo Advanced Directives Records Found Additional Source Comments (unrecognized sect ion and content) No Status Records FoundNo Status Records FoundNo Status Records FoundNo Status Records FoundNo Status Records Found INFORMATION SOURCE (unrecogn ized section and content) DATE CREATED AUTHOR 09/07/2019 [facility] DATE CREATED AUTHOR AUTHOR'S ORGANIZ ATION 05/12/2022 [facility] DATE CREATED AUTHOR AUTHOR'S ORGANIZ ATION 02/16/2024 [facility] DATE CREATED AUTHOR AUTHOR'S ORGANIZ ATION 11/14/2024 [facility] DATE CREATED AUTHOR AUTHOR'S ORGANIZ ATION 11/30/2024 [facility] Source Comments (unrecognize d section and content) In the event this informatio n is protected by the Federal Confidentiality of Alcohol and Drug Abuse Patient Records regulations: The Federal rules restrict any use of the information to criminally investigate or prosecute any alcohol or drug abuse patient.[facility] Healthcare[facility] the event this information is protected by the Federal Confidentiality of Alcohol and Drug Abuse Patient Records regulations: The Federal rules restrict any use of the information to criminally investigate or prosecute any alcohol or drug abuse patient.[facility] HealthcareIn the event this information is protected by the Federal Confidentiality of Alcohol and Drug Abuse Patient Records regulations: The Federal rules restrict any use of the information to criminally investigate or prosecute any alcohol or drug abuse patient.[facility] Healthcare[facility] the event this information is protected by the Federal Confidentiality of Alcohol and Drug Abuse Patient Records regulations: The Federal rules restrict any use of the information to criminally investigate or prosecute any alcohol or drug abuse patient.[facility] HealthcareIn the event this information is protected by the Federal Confidentiality of Alcohol and Drug Abuse Patient Records regulations: The Federal rules restrict any use of the information to criminally investigate or prosecute any alcohol or drug abuse patient.[facility] HealthcareIn the event this information is protected by the Federal Confidentiality of Alcohol and Drug Abuse Patient Records regulations: The Federal rules restrict any use of the information to criminally investigate or prosecute any alcohol or drug abuse patient.[facility] the event this information is protected by the Federal Confidentiality of Alcohol and Drug Abuse Patient Records regulations: The Federal rules restrict any use of the information to criminally investigate or prosecute any alcohol or drug abuse patient.[facility] HealthcareIn the event this information is protected by the Federal Confidentiality of Alcohol and Drug Abuse Patient Records regulations: The Federal rules restrict any use of the information to criminally investigate or prosecute any alcohol or drug abuse patient.[facility] HealthcareIn the event this information is protected by the Federal Confidentiality of Alcohol and Drug Abuse Patient Records regulations: The Federal rules restrict any use of the information to criminally investigate or prosecute any alcohol or drug abuse patient.[facility] HealthcareIn the event this information is protected by the Federal Confidentiality of Alcohol and Drug Abuse Patient Records regulations: The Federal rules restrict any use of the information to criminally investigate or prosecute any alcohol or drug abuse patient.[facility] HealthcareIn the event this information is protected by the Federal Confidentiality of Alcohol and Drug Abuse Patient Records regulations: The Federal rules restrict any use of the information to criminally investigate or prosecute any alcohol or drug abuse patient.[facility] Care Teams (unrecognized sec tion and content) Real Estate Administrative Assistant Relationship Specialty Start Date End Date (Historical), No Pcp PCP - General 09/23/14 Real Estate Administrative Assistant Relationship Specialty Start Date End Date (Historical), No Pcp PCP - General 09/23/14 Real Estate Administrative Assistant Relationship Specialty Start Date End Date (Historical), No Pcp PCP - General 09/23/14 Real Estate Administrative Assistant Relationship Specialty Start Date End Date (Historical), No Pcp PCP - General 09/23/14 Real Estate Administrative Assistant Relationship Specialty Start Date End Date (Historical), No Pcp PCP - General 09/23/14 Real Estate Administrative Assistant Relationship Specialty Start Date End Date (Historical), No Pcp PCP - General 09/23/14 Real Estate Administrative Assistant Relationship Specialty Start Date End Date Lavelle Calix PA-C [address] [place] [address] PCP - General Internal Medicine 11/28/23 Real Estate Administrative Assistant Relationship Specialty Start Date End Date Lavelle Calix PA-C [address] [place] [address] PCP - General Internal Medicine 11/28/23 Real Estate Administrative Assistant Relationship Specialty Start Date End Date Lavelle Calix PA-C [address] [place] [id number] PCP - General Internal Medicine 11/28/23 Ruchi Gomez PA-C [address] [place] [phone] [employer] Clerk Internal Medicine 01/15/24 Real Estate Administrative Assistant Relationship Specialty Start Date End Date Lavelle Calix PA-C [address] [place] [address] PCP - General Internal Medicine 11/28/23 Ruchi Gomez PA-C [address] [place] [id number] [employer] Clerk Internal Medicine 01/15/24 Reason for Visit (unrecogniz ed section and content) Reason Comments Physical Evaluation for low t estosterone, states he would like to have it checked. Establish Care Reason Comments Patient Update CPAP Reason Comments Cough Cough, chest congest ion, fever and bodyaches x 6 days Reason Comments Results FOR RECORDS PERTAINING TO PATIENTS WHO ARE OR HAVE BEEN ENROLLED IN A CHEMICAL DEPENDENCY/SUBSTANCEABUSE PROGRAM, SOME INFORMATION MAY BE OMITTED. This clinical summary was aggregated from multiple sources. Caution should be exercised in using it in the provision of clinical care. This summary normalizes information from multiple sources, and as a consequence, information in this document may materially change the coding, format and clinical context of patient data. In addition, data may be omitted in some cases. CLINICAL DECISIONS SHOULD BE BASED ON THE PRIMARY CLINICAL RECORDS. [facility]. provides no warranty or guarantee of the accuracy or completeness of information in this document.
== END | disposition home or self-care (01) ==
LOC: RAD 16:24
PROVIDERS: Referring Provider Nurse Practitioner Family; Visit Provider Nurse Practitioner Family
DX: J20.9 Acute bronchitis, unspecified (principal)
CPT/HCPCS: 71046